=== PATIENT | female | born 1970 | race Caucasian/White ===

== ENCOUNTER → 2020-11-26 14:51 | Outpatient (BNVA) | payer OTHER, SELFPAY | PROVIDERS: Visit Provider Emergency Medicine | DX: Z11.52 Encounter for screening for COVID-19 (principal); Z20.822 Contact with and (suspected) exposure to COVID-19 | CPT/HCPCS: 87635 ==

== ENCOUNTER → 2022-04-19 11:15 | Outpatient (BNVA) | payer OTHER, SELFPAY | PROVIDERS: Visit Provider Nurse Practitioner Family | DX: J44.9 Chronic obstructive pulmonary disease, unspecified (principal); R04.2 Hemoptysis; R91.8 Other nonspecific abnormal finding of lung field; R06.02 Shortness of breath | CPT/HCPCS: 71046 ==

== ENCOUNTER 2022-04-19 18:40 | Inpatient (IN) | payer OTHER, SELFPAY ==
[2022-04-19 18:49] VITALS: BP 161/96; PULSE 112; RESP 18; TEMP 37; O2SAT 94
--- NOTE | 2022-04-19 18:54 | ECG_ITS ---
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 Measurements Intervals [place] Rate: 96 P: 59 DE: 149 QRS: 47 QRSD: 92 T: 47 QT: 397 QTc: 503 Interpretive Statements SINUS RHYTHM LEFT ATRIAL ENLARGEMENT [-0.15mV P-WAVE IN V1/V2] No previous ECG available for comparison Electronically Signed On 04-20-2022 20:49:08 CDT by Salinas Ramesh M.D. [id number]
--- NOTE | 2022-04-19 18:54 | XRR_ITS ---
PROCEDURE INFORMATION: Exam: XR Chest Exam date and time: 04/19/2022 7:03 PM Age: 52 years old Clinical indication: Shortness of breath; Additional info: SOB TECHNIQUE: Imaging protocol: Radiologic exam of the chest. Views: 1 view. COMPARISON: CR XR chest 2V* [id number] 04/19/2022 11:14 AM FINDINGS: Lungs: Left mid lung 7.6 cm apparent cavitary lesion again seen, similar prior exam, chest CT could further characterize this, finding is concerning for an infectious process. Pleural spaces: Unremarkable. No pleural effusion. No pneumothorax. Heart/Mediastinum: Unremarkable. No cardiomegaly. Bones/joints: Unremarkable. XR/XR chest 1V portable [id number] IMPRESSION: Left mid lung 7.6 cm apparent cavitary lesion again seen, similar prior exam, chest CT could further characterize this, finding is concerning for an infectious process.
[2022-04-19 19:40] LABS: Basophils % 0.2 %; Eosinophils % 0.1 %; Hematocrit 45.6 % (37.0-47.0); Hemoglobin 15.7 g/dL (11.5-15.3); Lymphocytes # 0.7 10^3/uL (0.8-4.8); Lymphocytes % 5.9 %; Mean Corpuscular HGB Conc 34.4 g/dL (30.0-36.0); Mean Corpuscular Hemoglobin 35.4 pg (28.0-34.0); Mean Corpuscular Volume 102.7 fl (81-99); Monocytes # 0.3 10^3/uL (0.2-0.9); Monocytes % 2.4 %; Neutrophils # 11.12 10^3/uL (1.8-7.7); Neutrophils % 90.8 %; Nucleated Red Blood Cells % 0 %; Platelet Count 352 10^3/cmm (130-400); Red Blood Count 4.44 10^6/uL (4.1-5.3); White Blood Count 12.2 10^3/uL (4.0-10.0)
[2022-04-19 20:16] LABS: Troponin(5th) Baseline 6 ng/L (0-10)
[2022-04-19 20:24] LABS: Alanine Aminotransferase 23 U/L (0-33); Albumin Level 3.9 g/dL (3.5-5.2); Alkaline Phosphatase 82 IU/L (35-105); Blood Urea Nitrogen 8 mg/dL (6-20); Calcium 8.9 mg/dL (8.5-10.5); Carbon Dioxide 23 mmol/L (22-29); Chloride 99 mmol/L (98-107); Globulin 3.5 g/dL (1.3-4.6); Glucose 132 mg/dL (65-115); NT Pro B Type Natriuretic Pept 373 pg/mL (0-125); Osmolality Calculated 288 mOsm/kg (285-295); Sodium 139 mmol/L (136-145); Total Bilirubin 0.2 mg/dL (0.15-1.2); Total Protein 7.4 g/dL (6.6-8.7)
[2022-04-19 20:26] LABS: Aspartate Amino Transferase 33 U/L (0-32)
[2022-04-19 20:27] LABS: Anion Gap 19.9 (5-19); Potassium 2.9 mmol/L (3.5-5.1)
--- NOTE | 2022-04-19 20:54 | ECG_ITS ---
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 Measurements Intervals [place] Rate: 74 P: 62 LA: 136 QRS: 40 QRSD: 98 T: 48 QT: 435 QTc: 485 Interpretive Statements SINUS RHYTHM POSSIBLE LEFT ATRIAL ENLARGEMENT [-0.1mV P WAVE IN V1/V2] Compared to ECG 04/19/2022 21:56:04 No significant changes Electronically Signed On 04-20-2022 21:00:30 CDT by Salinas Ramesh M.D. [id number]
--- NOTE | 2022-04-19 21:21 | CTR_ITS ---
PROCEDURE INFORMATION: Exam: CT Chest Without Contrast; Diagnostic Exam date and time: 04/19/2022 10:03 PM Age: 52 years old Clinical indication: Chest wall pain and left-sided; Patient HX: Coughing up blood, abnormal xray 04/14/22, [id number] and steroids not helping; Additional info: Mass TECHNIQUE: Imaging protocol: Diagnostic computed tomography of the chest without contrast. Radiation optimization: All CT scans at this facility use at least one of these dose optimization techniques: automated exposure control; mA and/or kV adjustment per patient size (includes targeted exams where dose is matched to clinical indication); or iterative reconstruction. COMPARISON: CR XR chest 1V portable [id number] 04/19/2022 7:03 PM RADIATION DOSE METRICS: Total DLP (mGy-cm): 662.7 FINDINGS: Lungs: Peripherally located cavitary mass along the peripheral/inferior aspect of the left upper lobe measuring 7.0 x 5.1 x 7.7 cm series 4, image 29 and series 7, image 19. Some adjacent ground-glass opacities surround the cavitary mass. Scattered calcified granulomas noted in both lungs. Pleural spaces: No pneumothorax. No pleural effusion. Heart: No coronary artery calcifications. No cardiomegaly. No pericardial effusion. Lymph nodes: Mildly prominent lymph nodes in the AP window measuring up to 0.9 cm in short axis series 4, image 26. Partially calcified mediastinal and hilar lymph nodes noted. Vasculature: No aortic aneurysm. Bones/joints: No acute fracture. No aggressive osseous lesions. Soft tissues: Unremarkable. CT/CT chest wo con [id number] IMPRESSION: 1. Nearly 8 cm cavitary mass along the periphery of the left upper lobe. This could represent an abscess or malignancy in the appropriate clinical context. 2. Nonspecific mildly prominent mediastinal lymph nodes.
--- NOTE | 2022-04-19 21:22 | ED_ITS ---
HPI - SOB/Dyspnea General: Chief Complaint: Shortness of Breath/Dyspnea Stated Complaint: Dr sent to ER for a CT Time Seen by Provider: 04/19/22 21:18 Source: patient Mode of arrival: ambulatory Limitations: no limitations History of Present Illness: HPI Narrative: 52-year-old female who is no history of any medical issues states that started having a cough and some shortness of breath little over a week ago she states she started having hemoptysis as well. States she had an outpatient x-ray and was told that she may have an abscess and needs CT of the chest. States she does have pain to the left side and still having hemoptysis she states her shortness of breath is worse with exertion she is 94% here on room air she denies any fever denies any recent sick contacts Associated symptoms: Reports hemoptysis; Deny abdominal pain, chest pain, fever(s), nausea or vomiting Review of Systems Const: Denies: fever(s), chills, body aches or change in appetite Eyes: Denies: blurry vision or eye discomfort ENMT: Denies: throat pain or dental pain Card: Denies: chest pain Resp: Reports: dyspnea, productive cough and hemoptysis GI: Denies: abdominal pain, nausea, vomiting or diarrhea : Denies: dysuria Musc: Denies: neck pain or back pain Skin/Breast: Denies: rash Neuro: Denies: headache(s) Psych: Denies: depression Reinaldo/Lymph: Denies: easy bruising All/Imm: Denies: urticaria PFSH ED PFSH: Surgical History Hx of foot surgery left Hx of tubal ligation Social History Smoking and tobacco status: current every day smoker Second hand smoke exposure: No Smoking risk assessment/counseling performed?: Yes Alcohol intake: never Desire information about alcohol rehabilitation?: No Counseling given: No Desire information about substance/drug rehabilitation?: No Counseling given: No Adopted: No Caregiver/support person: No Lives independently: Yes Household members: spouse Housing: House Marital status: Number of children: 2 Current occupational status: employed History of recent travel: No Physical Exam Const: COMMON NORMALS: no acute distress, patient oriented x3 and healthy appearing HENMT: COMMON NORMALS: normocephalic and atraumatic HEAD & SCALP: normocephalic and atraumatic Eye: COMMON NORMALS: Equal, round and reactive pupils present and EOMs intact bilaterally PUPIL: Yes Equal, round and reactive pupils present Neck/C-Spine: COMMON NORMALS: full ROM and supple Chest: COMMONS NORMALS: normal inspection of the chest and normal palpation of entire chest wall Resp: COMMON NORMALS: normal respiratory effort, No retractions, No use of accessory muscles and clear to auscultation bilaterally AUSCULTATION: clear to auscultation bilaterally Cardio: COMMON NORMALS: regular rate, regular rhythm and No murmurs present (Cardio) RATE: regular rate RHYTHM: regular rhythm GI: COMMON NORMALS: Normal to inspection, nondistended, normoactive bowel sounds present, Soft to palpation, non-tender and no masses PALPATION: Yes Soft to palpation Extremity: COMMON NORMALS: normal to inspection and full ROM Neuro: COMMON NORMALS: patient oriented x3, moves all extremities and no focal motor deficits Psych: COMMON NORMALS: mental status grossly normal, Normal thought process present and cooperative THOUGHT PROCESS: Normal thought process present Skin: COMMON NORMALS: no rashes or lesions noted and no wounds GENERAL SKIN EXAM: no rashes or lesions noted Course Vital Signs: Vital signs: Vital Signs Temperature 98.6 F 04/19/22 18:49 Pulse Rate 96 04/19/22 22:54 Respiratory Rate 18 04/19/22 22:54 Blood Pressure 136/94 04/19/22 22:54 Pulse Oximetry 96 04/19/22 22:54 MDM - SOB/Dyspnea Medical Decision Making Patient presents here with hemoptysis and had outpatient x-ray that did show lung mass CT here shows a mass as well as abscess versus possible malignancy or infectious. Patient's white count here is 12.2 we will start IV antibiotics I spoke to hospitalist will admit at this time. Lab Data : 04/19/22 19:30 04/19/22 19:30 Labs/Radiology: Radiology Impressions Chest X-Ray 04/19/22 18:54 IMPRESSION: Left mid lung 7.6 cm apparent cavitary lesion again seen, similar prior exam, chest CT could further characterize this, finding is concerning for an infectious process. Chest CT 04/19/22 21:21 IMPRESSION: 1. Nearly 8 cm cavitary mass along the periphery of the left upper lobe. This could represent an abscess or malignancy in the appropriate clinical context. 2. Nonspecific mildly prominent mediastinal lymph nodes. Laboratory Results WBC 12.2 10^3/uL (4.0-10.0) H 04/19/22 19:30 RBC 4.44 10^6/uL (4.1-5.3) 04/19/22: Hgb 15.7 g/dL (11.5-15.3) H 04/19/22: Hct 45.6 % (37.0-47.0) 04/19/22: MCV 102.7 fl (81-99) H 04/19/22: MCH 35.4 pg (28.0-34.0) H 04/19/22: MCHC 34.4 g/dL (30.0-36.0) 04/19/22: RDW 13.0 % (12.1-15.1) 04/19/22: Plt Count 352 10^3/cmm (130-400) 04/19/22: MPV 10.0 fL (7.4-10.4) 04/19/22: Neut % (Auto) 90.8 % 04/19/22: Lymph % (Auto) 5.9 % 04/19/22: Turner % (Auto) 2.4 % 04/19/22: Eos % (Auto) 0.1 % 04/19/22: Baso % (Auto) 0.2 % 04/19/22: Neut # (Auto) 11.12 10^3/uL (1.8-7.7) H 04/19/22: Lymph # (Auto) 0.7 10^3/uL (0.8-4.8) L 04/19/22:30 Turner # (Auto) 0.3 10^3/uL (0.2-0.9) 04/19/22:30 Eos # (Auto) 0.0 10^3/uL (0.0-0.8) 04/19/22 19: Baso # (Auto) 0.0 10^3/uL (0.0-0.1) 04/19/22 19:30 Nucleated RBC % (auto) 0 % 04/19/22: Nucleated RBCs # 0.0 /100WBC 04/19/22 19: PT 11.80 SECONDS (12.1-14.9) L 04/19/22 21:30 INR 0.84 (0.8-1.2) 04/19/22 21:30 Sodium 139 mmol/L (136-145) 04/19/22 19:30 Potassium 2.9 mmol/L (3.5-5.1) L 04/19/22 19:30 Chloride 99 mmol/L (98-107) 04/19/22: Carbon Dioxide 23 mmol/L (22-29) 04/19/22: Anion Gap 19.9 (5-19) H 04/19/22:30 BUN 8 mg/dL (6-20) 04/19/22: Creatinine 0.4 mg/dL (0.5-0.9) L 04/19/22: GFR Calculation 169.0 mL/min (90-130) H 04/19/22: Glucose 132 mg/dL (65-115) H 04/19/22 19:30 Calculated Osmolality 288 mOsm/kg (285-295) 04/19/22: Calcium 8.9 mg/dL (8.5-10.5) 04/19/22:30 Total Bilirubin 0.2 mg/dL (0.15-1.2) 04/19/22: AST 33 U/L (0-32) H 04/19/22: ALT 23 U/L (0-33) 04/19/22: Alkaline Phosphatase 82 IU/L (35-105) 04/19/22 19:30 Troponin T Baseline 6 ng/L (0-10) 04/19/22 19: Troponin T 120 Minute 6.00 ng/L (0-10) 04/19/22:30 Delta Troponin T 0 ABS# (0-10) 04/19/22: NT-Pro-B Natriuret Pep 373 pg/mL (0-125) H 04/19/22 19:30 Total Protein 7.4 g/dL (6.6-8.7) 04/19/22 19:30 Albumin 3.9 g/dL (3.5-5.2) 04/19/22 19:30 Globulin 3.5 g/dL (1.3-4.6) 04/19/22 19:30 EKG Data EKG 1: I personally reviewed and interpreted this EKG as follows: EKG Interpretation Date: 04/19/22 EKG interpretation time: 21:56 Interpretation: nsr hr [address] or t wave abnormalities qrs 92 qtc 451 Discharge Plan Discharge Patient Disposition: Admitted As Inpatient Clinical Impression: Cavitating mass in left upper lung lobe Condition: Stable Prescriptions: No Action levofloxacin 500 mg tablet 500 mg PO DAILY Qty: 7 0RF prednisone 50 mg tablet 50 mg PO DAILY Qty: 5 0RF albuterol sulfate [ProAir HFA] 90 mcg/actuation HFA aerosol inhaler 2 puff inhalation QID PRN (Reason: shortness of breath or wheezing) Qty: 6.7 0RF naproxen 250 mg Tablet 250 mg PO BID 0RF Mucinex Cold 2.5-100 mg/5 mL Liquid 20 ml PO Q4H PRN (Reason: Cough) 0RF Coding Level of Care Code ED Supervisor Rod Placing for Chg Fwd Exam Comprehensive
[2022-04-19 21:47] LABS: INR 0.84 (0.8-1.2)
[2022-04-19 21:58] VITALS: BP 148/97; PULSE 95; RESP 16; O2SAT 98
[2022-04-19 22:20] LABS: Troponin 5 2HR Delta 0 ABS# (0-10)
[2022-04-19 22:54] VITALS: BP 136/94; PULSE 96; RESP 18; O2SAT 96
[2022-04-19] MEDS: piperacillin-tazobactam 3.375 GM in sodium chloride 0.9% (plus) 50 ML IV (23:13)
--- NOTE | 2022-04-19 23:41 | PM.HP ---
Providers/Chief Complaint Chief Complaint: Dr sent to ER for a CT History of Present Illness Pleasant 52-year-old lady with smoking history, month history of hemoptysis, with cough worse over a week, on outpatient side was treated with Levaquin, prednisone, but without improvement, with chest x-ray showing 8 cm left midlung lesion with fluid level suspicious for abscess, assessed additionally here in ER with CT chest with finding of 8 cm cavitary mass along the periphery of the left upper lobe, possible abscess or malignancy. Nonspecific mildly prominent mediastinal lymph nodes. She denies any exposure to tuberculosis, denies any recurrent fevers, does have some sweats at night, denies any unintended weight loss, denies any homelessness or incarceration history. She works for [employer], with a lot of exposure to dust. Review of Systems Const: Denies: fever(s), chills, body aches or malaise Eyes: Denies: change in vision, eye discomfort or eye redness ENMT: Denies: throat pain, oral sores or ear or mastoid pain Card: Denies: chest pain, edema, pre-syncope or dyspnea on exertion Resp: Reports: productive cough and hemoptysis GI: Denies: abdominal pain, nausea, vomiting, diarrhea, constipation, hematochezia or melena : Denies: flank pain, urinary frequency or hematuria Musc: Denies: back pain, joint swelling or joint redness Skin/Breast: Denies: rash or new lesions Neuro: Denies: headache(s), numbness in extremities, weakness in extremities, dizziness, confusion or seizure-like activity Endo: Denies: polyuria or polydipsia Reinaldo/Lymph: Denies: easy bleeding or tender lymph nodes All/Imm: Denies: urticaria or tongue swelling Medications/Allergies Home Medications Medication Instructions Recorded Confirmed Last Taken Type albuterol sulfate 90 mcg/actuation 2 puff INHALATION QID PRN #6.7 g 04/16/22 04/19/22 04/19/22 Rx aerosol inhaler (ProAir HFA) levofloxacin 500 mg tablet 500 mg PO DAILY #7 tab 04/16/22 04/19/22 04/19/22 Rx prednisone 50 mg tablet 50 mg PO DAILY #5 tab 04/16/22 04/19/22 04/19/22 Rx naproxen 250 mg tablet 250 mg PO BID 04/19/22 04/19/22 04/19/22 History phenylephrine-guaifenesin 2.5 20 ml PO Q4H PRN 04/19/22 04/19/22 04/19/22 History mg-100 mg/5 mL oral liquid Allergies Allergy/AdvReac Type Severity Reaction Status Date / Time Sulfa (Sulfonamide Allergy Unknown unkn Verified 04/19/22 21:38 Antibiotics) PFSH Acute PFSH: Medical History No significant past medical history Smoking addiction Surgical History Hx of foot surgery left Hx of tubal ligation Family History Sister Breast cancer Social History Smoking and tobacco status: current every day smoker Second hand smoke exposure: No Smoking risk assessment/counseling performed?: Yes Alcohol intake: never Desire information about alcohol rehabilitation?: No Counseling given: No Desire information about substance/drug rehabilitation?: No Counseling given: No Adopted: No Caregiver/support person: No Lives independently: Yes Household members: spouse Housing: House Marital status: Number of children: 2 Current occupational status: employed History of recent travel: No Vitals/I&O/Wt Last Vital Signs Temp 98.6 F 04/19/22 18:49 Pulse 96 04/19/22 22:54 Resp 18 04/19/22 22:54 BP 136/94 04/19/22 22:54 Pulse Ox 96 04/19/22 22:54 Weight last 48 hrs Weight 58.967 kg Physical Exam Const: COMMON NORMALS: alert GENERAL APPEARANCE: cooperative ORIENTATION/CONSCIOUSNESS: Yes awake HENMT: COMMON NORMALS: normocephalic, EAC's normal, Normal external nose present and moist oral mucous membranes HEAD & SCALP: normocephalic NOSE: Normal external nose present EXTERNAL AUDITORY CANAL: EAC's normal Neck/C-Spine: COMMON NORMALS: no meningeal signs Chest: CHEST: Yes Symmetrical chest wall rise Resp: COMMON NORMALS: clear to auscultation bilaterally AUSCULTATION: clear to auscultation bilaterally Cardio: COMMON NORMALS: regular rate, regular rhythm and No murmurs present (Cardio) RATE: regular rate RHYTHM: regular rhythm GI: COMMON NORMALS: Normal to inspection, nondistended, normoactive bowel sounds present, Soft to palpation and non-tender PALPATION: Yes Soft to palpation Extremity: COMMON NORMALS: no pedal edema Neuro: COMMON NORMALS: moves all extremities SENSORIUM/ORIENTATION: Yes alert MENINGEAL SIGNS: Yes no meningeal signs Psych: COMMON NORMALS: mental status grossly normal Skin: COMMON NORMALS: no wounds RASHES: no rashes Data : 04/19/22 19:30 04/19/22 19:30 Micro: Microbiology 04/19/22 22:29 Blood Culture - Preliminary Blood SPECIMEN COLLECTED 04/19/22 22:25 Blood Culture - Preliminary Blood SPECIMEN COLLECTED A&P Assessment and plan (1) Cavitating mass in left upper lung lobe: Possible lung abscess, versus malignancy. She was asking whether it could be a pulled muscle. Discussed with her the concerning findings on CT which will need Additional diagnosis as well as treatment including possible prolonged antibiotic course in case of lung abscess, assessment for possible atypical infection, fungal or other; tissue diagnosis, additional assessment and management with oncology in case of malignancy. Possible sepsis without end organ damage with leukocytosis 12,000, sinus tachycardia 112. Blood cultures were collected. Collect blood cultures. Continue Zosyn, vancomycin. Collect urine bacterial antigens, MRSA PCR. BD glucan. Galactomannan. Would benefit from pulmonary consultation for additional assessment, consideration of additional diagnostic measures, possibility of bronchoscopy. Status: Acute (2) Smoking addiction: Encourage cessation. Nicotine replacement as needed. Status: Acute Plan Needs PCP Attestations Medical Necessity Statement*: Admission of over 2 midnights is anticipated for assessment of management of lung infection, lung abscess, possible sepsis nonresponsive to outpatient treatment. Coding Level of Care Code Acute Tin Pourer for [facility] Fwd Diagnoses Cavitating mass in left upper lung lobe J98.4 Smoking addiction F17.200
[2022-04-19] MEDS: vancomycin 1,000 MG in sodium chloride 0.9% 250 ML 250 MG IV (23:50)
[2022-04-20] VITALS (8 sets, daily range): BP systolic 124–162; BP diastolic 64–100; PULSE 70–94; RESP 14–18; TEMP 36.5–36.9; O2SAT 93–96; BMI 20.9
--- NOTE | 2022-04-20 00:54 | ECG_ITS ---
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 Measurements Intervals [place] Rate: 78 P: 66 [place]: 143 QRS: 50 QRSD: 97 T: 47 QT: 423 QTc: 484 Interpretive Statements SINUS RHYTHM WITH SINUS ARRHYTHMIA POSSIBLE LEFT ATRIAL ENLARGEMENT [-0.1mV P-WAVE IN V1/V2] Compared to ECG 04/19/2022 23:56:04 No significant changes Electronically Signed On 04-20-2022 21:00:46 CDT by Salinas Ramesh M.D. [id number]
[2022-04-20 02:06] LABS: Troponin 5 6HR Delta 0 ng/L (0-12)
--- NOTE | 2022-04-20 02:47 | PC.PHAR ---
Vancomycin is dosed at 1500mg IVPB every 12 hours to produce a predicted trough level of 13.56 (population based pharmacokinetic analysis). A trough level has been ordered from the lab to be obtained before the fourth dose to confirm and adjust if needed.
[2022-04-20 07:35] LABS: Basophils % 0.1 %; Hematocrit 39.3 % (37.0-47.0); Hemoglobin 14.2 g/dL (11.5-15.3); Lymphocytes # 2.3 10^3/uL (0.8-4.8); Lymphocytes % 21.5 %; Mean Corpuscular HGB Conc 36.1 g/dL (30.0-36.0); Mean Corpuscular Hemoglobin 35.8 pg (28.0-34.0); Mean Platelet Volume 10.1 fL (7.4-10.4); Monocytes # 1.1 10^3/uL (0.2-0.9); Monocytes % 10.6 %; Neutrophils # 7.17 10^3/uL (1.8-7.7); Neutrophils % 67.3 %; Nucleated Red Blood Cells % 0 %; Platelet Count 311 10^3/cmm (130-400); Red Blood Count 3.97 10^6/uL (4.1-5.3); Red Cell Distribution Width 12.8 % (12.1-15.1); White Blood Count 10.7 10^3/uL (4.0-10.0)
[2022-04-20 08:03] LABS: Alanine Aminotransferase 19 U/L (0-33); Albumin Level 3.7 g/dL (3.5-5.2); Alkaline Phosphatase 69 IU/L (35-105); Anion Gap 13.2 (5-19); Aspartate Amino Transferase 24 U/L (0-32); Blood Urea Nitrogen 8 mg/dL (6-20); Calcium 8.8 mg/dL (8.5-10.5); Carbon Dioxide 30 mmol/L (22-29); Chloride 101 mmol/L (98-107); Globulin 2.9 g/dL (1.3-4.6); Glomerular Filtration Rate 235.5 mL/min (90-130); Glucose 103 mg/dL (65-115); Osmolality Calculated 291 mOsm/kg (285-295); Potassium 3.2 mmol/L (3.5-5.1); Sodium 141 mmol/L (136-145); Total Bilirubin 0.3 mg/dL (0.15-1.2); Total Protein 6.6 g/dL (6.6-8.7)
[2022-04-20] MEDS: piperacillin-tazobactam 3.375 GM in sodium chloride 0.9% (plus) 50 ML IV ×3 (08:04→23:05)
--- NOTE | 2022-04-20 11:01 | PM.PN ---
Subjective Subjective: Patient was seen and examined this morning, no reported episode of hemoptysis during the hospital stay, H&H is stable, patient is afebrile, saturating well on room air. She does complain of occasional slight pain Under her left breast. Medications: Medication Review Details: Generic Name Dose Route Start Last Admin Trade Name Benji PRN Reason Stop Dose Admin Piperacillin Sod/T azobactam 50 mls @ 12.5 mls /hr 04/20/22 07:00 04/20/22 08:04 Sod 3.375 gm/ So dium Chloride IV 12.5 mls/hr Q8H MILENA Administration Protocol Vitals/I&O/Wt Last Vital Signs Temp 98.1 F 04/20/22 08:00 Pulse 75 04/20/22 08:00 Resp 14 04/20/22 08:00 BP 157/89 04/20/22 08:00 Pulse Ox 94 04/20/22 08:00 04/19/22 04/20/22 04/20/22 22:59 06:59 14:59 Intake Total 300 / 300 Balance 300 / 300 Weight last 48 hrs Weight 58.967 kg Weight 58.967 kg Physical Exam Const: COMMON NORMALS: patient oriented x3 HENMT: COMMON NORMALS: normocephalic and atraumatic HEAD & SCALP: normocephalic and atraumatic Chest: CHEST: Yes Symmetrical chest wall rise Resp: COMMON NORMALS: normal respiratory effort, No retractions, No use of accessory muscles and clear to auscultation bilaterally EFFORT & INSPECTION: Yes symmetric chest movement AUSCULTATION: clear to auscultation bilaterally Cardio: COMMON NORMALS: regular rate, regular rhythm, S1 normal heart sound present, S2 normal heart sound present, No gallops present (Cardio), No murmurs present (Cardio), No rub (Cardio) and Peripheral pulses 2+ throughout RATE: regular rate RHYTHM: regular rhythm HEART SOUNDS: S1 normal heart sound present and S2 normal heart sound present PERIPHERAL PULSES: Peripheral pulses 2+ throughout GI: COMMON NORMALS: Normal to inspection, nondistended, normoactive bowel sounds present, Soft to palpation, non-tender, No hepatosplenomegaly present and no masses AUSCULTATION: Yes normoactive bowel sounds PALPATION: Yes Soft to palpation and Yes No hepatosplenomegaly present RECTAL EXAM: deferred Extremity: COMMON NORMALS: no clubbing, cyanosis or edema and no pedal edema Neuro: COMMON NORMALS: patient oriented x3 Data : 04/20/22 07:22 04/20/22 07:22 Micro: Microbiology 04/20/22 07:33 Legionella Urinary Antigen - Final Urine,Voided Bacterial Antigens - Final 04/19/22 22:29 Blood Culture - Preliminary Blood SPECIMEN COLLECTED 04/19/22 22:25 Blood Culture - Preliminary Blood SPECIMEN COLLECTED A&P Assessment and plan (1) Cavitating mass in left upper lung lobe: Possible lung abscess, versus malignancy. She was asking whether it could be a pulled muscle. Discussed with her the concerning findings on CT which will need Additional diagnosis as well as treatment including possible prolonged antibiotic course in case of lung abscess, assessment for possible atypical infection, fungal or other; tissue diagnosis, additional assessment and management with oncology in case of malignancy. Possible sepsis without end organ damage with leukocytosis 12,000, sinus tachycardia 112. Blood cultures were collected. Collect blood cultures. Continue Zosyn, vancomycin. Collect urine bacterial antigens, MRSA PCR. BD glucan. Galactomannan. Would benefit from pulmonary consultation for additional assessment, consideration of additional diagnostic measures, possibility of bronchoscopy. Status: Acute (2) Smoking addiction: Encourage cessation. Nicotine replacement as needed. Status: Acute Plan 52-year-old female with no significant past medical history, has a history of significant smoking about a pack a day for 20 years, came in with chief complaint of hemoptysis and cough going on for couple of weeks, worse on last Tuesday, which prompted her to go to the physician, at that time she was diagnosed with Walking pneumonia, and she was prescribed Levaquin as well as prednisone and sent home, she was called by by the physician after she reviewed her x-ray chest, which showed Lesion along the peripheral left mid lung measuring up to 8 cm in size fluid level suspicious for abscess. When I interacted with the patient this morning, she has denied, any weight loss, fever chills , overt fatigue , shortness of breath nausea vomiting, pain, rash, joint swelling, oral ulcers, Hematuria, night sweats, sick contact, IV drug use, she was inquired about her occupation. CT chest without contrast evaluation: Looks like reverse halo sign, but the study is limited due to no contrast use. Assessment: Cavitating mass in left upper lung lobe: Suspicious for possible abscess versus malignant. Follow 2D echo Aspergillus studies Cryptococcal studies Coccidioides Rheumatological panel ANCA Histoplasma study TB QuantiFERON gold ESR CRP Procalcitonin Follow blood culture Sputum gram stain and culture Urinalysis for hematuria, proteinuria Respiratory viral panel Continue Vanco and Zosyn for now. We will most likely discharge on p.o. antibiotics for 2 weeks. Patient was briefly discussed with pulmonary physician, current plan will be to likely follow her as an outpatient. CODE STATUS: Full code Attestations Medical Necessity Statement*: Patient is to be in hospital for management of above defined problems. Need for IV antibiotics. Time Spent in Patient Care: Greater than 35 minutes (>than 50% of time spent in counselling and/or direct pt care on unit). Coding Level of Care Code Acute Chief Deputy Clerk/Bailiff for [place] Fwd Exam Detailed Diagnoses Cavitating mass in left upper lung lobe J98.4 Smoking addiction F17.200
--- NOTE | 2022-04-20 11:11 | USCV_ITS ---
Yoselin Chahal Age: 52 Gender: F : 1970 Exam Date: 04/20/2022 15:57 Ordering Phys: Edmundo Guerrero MD Technologist: DEANDRA [place] [facility] [place] POSSIBLE SEPTIC EMBOLI BP: 157 / 89 HR: 71 Rhythm: Sinus Technical Quality: Adequate MEASUREMENTS (Male / Female) Normal Values 2D ECHO LV Diastolic Diameter PLAX 4.2 cm 4.2 - 5.9 / 3.9 - 5.3 cm LV Systolic Diameter PLAX 3.0 cm IVS Diastolic Thickness 1.5 cm 0.6 - 1.0 / 0.6 - 0.9 cm IVS Systolic Thickness 1.6 cm LVPW Diastolic Thickness 1.4 cm 0.6 - 1.0 / 0.6 - 0.9 cm LVPW Systolic Thickness 1.7 cm LVOT Diameter 2.0 cm LV Ejection Fraction 2D Teich 55.6 % LV Ejection Fraction MOD 2C 40.0 % LV Ejection Fraction 2C AL 40.6 % LA Diameter 3.1 cm LA Width 3.0 cm LA Height 3.5 cm RA Width 3.7 cm RA Height 3.9 cm Aorta at Sinotubular Diameter 2.4 cm IVC Diameter 1.7 cm M-MODE Aortic Annulus Diameter 2.7 cm LA Ao Ratio MM 1.0 MV E Point Septal Separation 0.8 cm DOPPLER AV Peak Velocity 134.0 cm/s LVOT Peak Velocity 84.0 cm/s AV Area Cont Eq vti 2.1 cm squared AV Area Cont Eq pk 1.9 cm squared MV Peak Velocity 80.0 cm/s MV Area PHT 3.7 cm squared Mitral E to A Ratio 1.1 MV E' Velocity 40.5 cm/s Mitral E to MV E' Ratio 7.2 Mitral E to LV E' Lateral Ratio 9.5 Mitral E to LV E' Septal Ratio 5.9 TR Peak Velocity 191.9 cm/s TR Peak Gradient 14.7 mmHg TR Mean Velocity 152.7 cm/s TR Mean Gradient 10.0 mmHg TR Velocity Time Integral 50.9 cm TV Peak E Velocity 63.0 cm/s Right Atrial Pressure 3.0 mmHg Pulmonary Artery Systolic Pressu 17.7 mmHg FINDINGS Left Ventricle Normal left ventricular size. LV systolic function is mildly reduced with EF of 45 to 50%. Mild global hypokinesis. Right Ventricle The right ventricle is normal in size and function. Right Atrium The right atrium is normal in size. Left Atrium The left atrium is normal in size. Mitral Valve Structurally normal mitral valve without significant stenosis or prolapse. There is no mitral regurgitation. Aortic Valve Grossly normal. No significant stenosis or regurgitation. Tricuspid Valve Grossly normal. Trace tricuspid regurgitation. Pulmonic Valve Not well-visualized Pericardium Normal pericardium without effusion. Aorta Normal ascending aorta dimension. IVC CONCLUSIONS Technically limited quality echocardiogram because of poor ultrasonic windows. LV systolic function is mildly reduced with EF of 45 to 50%. Mild global hypokinesis. No gross valvular abnormalities seen. No comparison studies are available Tate Resendiz MD (Electronically Signed) Final Date: 20 April 2022 18:38 S
[2022-04-20] MEDS: vancomycin 1,500 MG/300 ML PIGGYBACK 150 MG IV (12:15)
[2022-04-20] MEDS: acetaminophen 325 mg Tablet 650 MG PO (12:15)
[2022-04-20 18:03] LABS: Add Urine Culture? No; Add Urine Microscopic? YES; Bilirubin Urine Neg (Negative); Blood Urine 2+ (Negative); Glucose Urine UA Norm (Normal); Ketones Urine Negative (Negative); Leukocyte Esterase Urine Negative (Negative); Nitrate Urine Negative (Negative); Protein Urine Neg (Negative); RBC Urine 0-4 /hpf (0-2); Squamous Epithelial Cell Urine 0-4 /hpf (0-5); Sulfosalicylic Acid Urine Negative (Negative); Urine Appearance Clear (CLEAR); Urine Color Colorless (Yellow); Urobilinogen Urine Norm (Negative); WBC Urine 0-4 /hpf (0-5); pH Urine 8 (5-7)
[2022-04-21] VITALS: BP 132/86; PULSE 86; RESP 18; TEMP 36.7; O2SAT 92
[2022-04-21] MEDS: vancomycin 1,500 MG/300 ML PIGGYBACK 150 MG IV ×2 (02:45→11:12)
[2022-04-21] MEDS: piperacillin-tazobactam 3.375 GM in sodium chloride 0.9% (plus) 50 ML IV ×3 (05:30→22:36)
[2022-04-21 05:39] LABS: Basophils % 0.4 %; Eosinophils # 0.1 10^3/uL (0.0-0.8); Eosinophils % 0.8 %; Erythrocyte Sedimentation Rate 21 mm/hr (0-15); Hematocrit 42.9 % (37.0-47.0); Hemoglobin 14.9 g/dL (11.5-15.3); Lymphocytes # 2.4 10^3/uL (0.8-4.8); Mean Corpuscular HGB Conc 34.7 g/dL (30.0-36.0); Mean Corpuscular Hemoglobin 35.3 pg (28.0-34.0); Mean Corpuscular Volume 101.7 fl (81-99); Monocytes # 0.9 10^3/uL (0.2-0.9); Monocytes % 7.6 %; Neutrophils # 7.97 10^3/uL (1.8-7.7); Neutrophils % 69.8 %; Nucleated Red Blood Cells % 0 %; Platelet Count 322 10^3/cmm (130-400); Red Blood Count 4.22 10^6/uL (4.1-5.3); Red Cell Distribution Width 12.7 % (12.1-15.1); White Blood Count 11.4 10^3/uL (4.0-10.0)
[2022-04-21 05:58] LABS: Alanine Aminotransferase 20 U/L (0-33); Albumin Level 3.6 g/dL (3.5-5.2); Alkaline Phosphatase 69 IU/L (35-105); Anion Gap 13.2 (5-19); Aspartate Amino Transferase 28 U/L (0-32); Blood Urea Nitrogen 7 mg/dL (6-20); C Reactive Protein 6.8 mg/L (0.0-4.9); Calcium 8.7 mg/dL (8.5-10.5); Carbon Dioxide 27 mmol/L (22-29); Chloride 100 mmol/L (98-107); Globulin 2.8 g/dL (1.3-4.6); Glomerular Filtration Rate 235.5 mL/min (90-130); Glucose 89 mg/dL (65-115); Osmolality Calculated 281 mOsm/kg (285-295); Potassium 3.2 mmol/L (3.5-5.1); Sodium 137 mmol/L (136-145); Total Bilirubin 0.4 mg/dL (0.15-1.2); Total Protein 6.4 g/dL (6.6-8.7)
[2022-04-21 06:04] LABS: Procalcitonin 0.03 ng/mL (0-0.5)
[2022-04-21 07:40] VITALS: BP 146/87; PULSE 90; RESP 16; TEMP 36.7; O2SAT 94
[2022-04-21 08:00] VITALS: PULSE 87; RESP 18; O2SAT 92
[2022-04-21 11:53] VITALS: BP 130/84; PULSE 72; RESP 16; TEMP 36.8; O2SAT 96
[2022-04-21 15:48] VITALS: BP 144/83; PULSE 85; RESP 16; TEMP 36.8; O2SAT 95
--- NOTE | 2022-04-21 18:51 | PM.PN ---
Subjective Subjective: Patient was seen and examined this morning, no reported episode of hemoptysis, H&H is stable, saturating well on room air, afebrile. Cultures have remained negative so far. Medications: Medication Review Details: Generic Name Dose Route Start Last Admin Trade Name Benji PRN Reason Stop Dose Admin Acetaminophen 650 mg 04/20/22 02:27 04/20/22 12:15 Acetaminophen 32 5 Mg Tablet PO 650 mg Q6H PRN Administration Mild/Mod Pain Or Temp >/= 101 Piperacillin Sod/T azobactam 50 mls @ 12.5 mls /hr 04/20/22 07:00 04/21/22 15:55 Sod 3.375 gm/ So dium Chloride IV 12.5 mls/hr Q8H MILENA Administration Protocol Vancomycin/PEG/NAD A/Lysine/Water 1,500 mg in 300 m ls @ 150 mls/hr 04/20/22 12:00 04/21/22 14:08 Vancocin IV Infused Q12H MILENA Infusion Vitals/I&O/Wt Last Vital Signs Temp 98.3 F 04/21/22 15:48 Pulse 85 04/21/22 15:48 Resp 16 04/21/22 15:48 BP 144/83 04/21/22 15:48 Pulse Ox 95 04/21/22 15:48 04/21/22 04/21/22 04/21/22 06:59 14:59 22:59 Intake Total 350 / 1590 710 / 710 240 / 950 Balance 350 / 1590 710 / 710 240 / 950 Weight last 48 hrs Weight 58.967 kg Physical Exam Const: COMMON NORMALS: patient oriented x3 HENMT: COMMON NORMALS: normocephalic and atraumatic HEAD & SCALP: normocephalic and atraumatic Chest: CHEST: Yes Symmetrical chest wall rise Resp: COMMON NORMALS: normal respiratory effort, No retractions, No use of accessory muscles and clear to auscultation bilaterally EFFORT & INSPECTION: Yes symmetric chest movement AUSCULTATION: clear to auscultation bilaterally Cardio: COMMON NORMALS: regular rate, regular rhythm, S1 normal heart sound present, S2 normal heart sound present, No gallops present (Cardio), No murmurs present (Cardio), No rub (Cardio) and Peripheral pulses 2+ throughout RATE: regular rate RHYTHM: regular rhythm HEART SOUNDS: S1 normal heart sound present and S2 normal heart sound present PERIPHERAL PULSES: Peripheral pulses 2+ throughout GI: COMMON NORMALS: Normal to inspection, nondistended, normoactive bowel sounds present, Soft to palpation, non-tender, No hepatosplenomegaly present and no masses AUSCULTATION: Yes normoactive bowel sounds PALPATION: Yes Soft to palpation and Yes No hepatosplenomegaly present RECTAL EXAM: deferred Extremity: COMMON NORMALS: no clubbing, cyanosis or edema and no pedal edema Neuro: COMMON NORMALS: patient oriented x3 Data : 04/21/22 05:07 04/21/22 05:07 Micro: Microbiology 04/20/22 07:33 Gram Stain - Final Sputum - Expectorated Sputum Sputum Culture - Preliminary 04/20/22 19:14 Gram Stain - Final Sputum - Expectorated Sputum Sputum Culture - Preliminary 04/19/22 22:29 Blood Culture - Preliminary Blood NEGATIVE TO DATE 04/19/22 22:25 Blood Culture - Preliminary Blood NEGATIVE TO DATE 04/20/22 03:45 MRSA Culture - Final Nose A&P Assessment and plan (1) Cavitating mass in left upper lung lobe: Possible lung abscess, versus malignancy. She was asking whether it could be a pulled muscle. Discussed with her the concerning findings on CT which will need Additional diagnosis as well as treatment including possible prolonged antibiotic course in case of lung abscess, assessment for possible atypical infection, fungal or other; tissue diagnosis, additional assessment and management with oncology in case of malignancy. Possible sepsis without end organ damage with leukocytosis 12,000, sinus tachycardia 112. Blood cultures were collected. Collect blood cultures. Continue Zosyn, vancomycin. Collect urine bacterial antigens, MRSA PCR. BD glucan. Galactomannan. Would benefit from pulmonary consultation for additional assessment, consideration of additional diagnostic measures, possibility of bronchoscopy. Status: Acute (2) Smoking addiction: Encourage cessation. Nicotine replacement as needed. Status: Acute Plan 52-year-old female with no significant past medical history, has a history of significant smoking about a pack a day for 20 years, came in with chief complaint of hemoptysis and cough going on for couple of weeks, worse on last Tuesday, which prompted her to go to the physician, at that time she was diagnosed with Walking pneumonia, and she was prescribed Levaquin as well as prednisone and sent home, she was called by by the physician after she reviewed her x-ray chest, which showed Lesion along the peripheral left mid lung measuring up to 8 cm in size fluid level suspicious for abscess. When I interacted with the patient this morning, she has denied, any weight loss, fever chills , overt fatigue , shortness of breath nausea vomiting, pain, rash, joint swelling, oral ulcers, Hematuria, night sweats, sick contact, IV drug use, she was inquired about her occupation. Patient has denied any recent travel CT chest without contrast evaluation: Looks like reverse halo sign, but the study is limited due to no contrast use. Assessment: Cavitating mass in left upper lung lobe: Suspicious for possible abscess versus malignant. 2D echo: LV systolic function is mildly reduced with EF of 45 to 50%.?Mild global hypokinesis. No gross valvular abnormalities seen. Aspergillus studies Cryptococcal studies Coccidioides Rheumatological panel ANCA Histoplasma study TB QuantiFERON gold ESR: 21 CRP: 6.8 Procalcitonin: 0.03 Follow blood culture:NTD Sputum gram stain and culture: Urine Legionella antigen: Negative Bacterial antigen panel: Negative MRSA PCR: Negative Urinalysis for hematuria, proteinuria Respiratory viral panel Continue Vanco and Zosyn for now. We will most likely discharge on p.o. antibiotics for 2 weeks. Patient was briefly discussed with pulmonary physician, current plan will be to likely follow her as an outpatient. Patient has also been advised to follow cardiology as an outpatient, in light of the echo findings, as well as given her significant history of smoking, To rule out any ischemic cardiomyopathy, currently she has no typical cardiac chest pain. CODE STATUS: Full code Attestations Medical Necessity Statement*: Patient is to be hospital for management of cavitary mass in left upper lung lobe, need for IV antibiotics. Coding Level of Care Code Acute [employer] for [facility] Diagnoses Cavitating mass in left upper lung lobe J98.4 Smoking addiction F17.200
[2022-04-21 20:00] VITALS: BP 134/77; PULSE 86; PULSE 91; RESP 15; RESP 18; TEMP 36.8; O2SAT 95; O2SAT 97
[2022-04-21] MEDS: acetaminophen 325 mg Tablet 650 MG PO (22:42)
--- NOTE | 2022-04-21 23:50 | PC.PHAR ---
Vancomycin trough on dosage of 1500mg IVPB every 12 hours before the fourth dose is 9.0. Dosage is increase to 1500mg IVPB every 8 hours with another trough to be obtained before the fourth dose at this rate.
[2022-04-22] VITALS: BP 139/83; PULSE 84; RESP 19; TEMP 36.3; O2SAT 94
[2022-04-22] MEDS: vancomycin 1,500 MG/300 ML PIGGYBACK 150 MG IV ×2 (00:03→09:11)
[2022-04-22 04:00] VITALS: BP 135/85; PULSE 76; RESP 18; TEMP 36.7; O2SAT 94
[2022-04-22] MEDS: piperacillin-tazobactam 3.375 GM in sodium chloride 0.9% (plus) 50 ML IV (06:32)
[2022-04-22 07:07] LABS: Basophils # 0.1 10^3/uL (0.0-0.1); Basophils % 0.5 %; Eosinophils # 0.2 10^3/uL (0.0-0.8); Eosinophils % 1.6 %; Hemoglobin 14.9 g/dL (11.5-15.3); Lymphocytes # 2.2 10^3/uL (0.8-4.8); Lymphocytes % 17.7 %; Mean Corpuscular HGB Conc 33.1 g/dL (30.0-36.0); Mean Corpuscular Hemoglobin 35.3 pg (28.0-34.0); Mean Corpuscular Volume 106.6 fl (81-99); Mean Platelet Volume 10.1 fL (7.4-10.4); Monocytes # 1.3 10^3/uL (0.2-0.9); Monocytes % 10.3 %; Neutrophils % 69.3 %; Nucleated Red Blood Cells % 0 %; Platelet Count 284 10^3/cmm (130-400); Red Blood Count 4.22 10^6/uL (4.1-5.3); Red Cell Distribution Width 12.9 % (12.1-15.1); White Blood Count 12.4 10^3/uL (4.0-10.0)
[2022-04-22 07:54] LABS: Alanine Aminotransferase 22 U/L (0-33); Albumin Level 3.5 g/dL (3.5-5.2); Alkaline Phosphatase 76 IU/L (35-105); Anion Gap 13.2 (5-19); Aspartate Amino Transferase 26 U/L (0-32); Blood Urea Nitrogen 7 mg/dL (6-20); Calcium 8.8 mg/dL (8.5-10.5); Carbon Dioxide 25 mmol/L (22-29); Chloride 104 mmol/L (98-107); Globulin 3.3 g/dL (1.3-4.6); Glomerular Filtration Rate 235.5 mL/min (90-130); Glucose 95 mg/dL (65-115); Osmolality Calculated 286 mOsm/kg (285-295); Potassium 3.2 mmol/L (3.5-5.1); Sodium 139 mmol/L (136-145); Total Bilirubin 0.4 mg/dL (0.15-1.2); Total Protein 6.8 g/dL (6.6-8.7)
[2022-04-22 08:00] VITALS: BP 135/86; PULSE 101; PULSE 88; RESP 16; RESP 17; TEMP 36.9; O2SAT 95
--- NOTE | 2022-04-22 10:32 | PM.DCS ---
Discharge Providers Date of Admission: 04/20/22 02:27 Date of Discharge: April 22, 2022 Attending Provider at Admission: Kevin Hines Attending Provider at Discharge: Edmundo Guerrero MD Diagnoses at Discharge Discharge Diagnosis (1) Cavitating mass in left upper lung lobe: Status: Acute (2) Smoking addiction: Status: Acute Reason for Visit Reason for Visit: Dr sent to ER for a CT Hospital Course Hospital Course 52-year-old female with no significant past medical history, has a history of significant smoking about a pack a day for 20 years, came in with chief complaint of hemoptysis and cough going on for couple of weeks, worse on last Tuesday, which prompted her to go to the physician, at that time she was diagnosed with Walking pneumonia, and she was prescribed Levaquin as well as prednisone and sent home, she was called by by the physician after she reviewed her x-ray chest, which showed?Lesion along the peripheral left mid lung measuring up to 8 cm in size fluid level suspicious for abscess. When I interacted with the patient she has denied, any weight loss, fever chills , overt fatigue , shortness of breath nausea vomiting, pain, rash, joint swelling, oral ulcers, Hematuria, night sweats, sick contact, IV drug use, she was inquired about her occupation. Patient has denied any recent travel. CT chest without contrast evaluation: Looks like reverse halo sign, but the study is limited due to no contrast use. She was admitted for management of Cavitating mass in left upper lung lobe: Suspicious for possible abscess versus malignant: She was kept on broad-spectrum antibiotics during the hospital stay, had occasional scant hemoptysis during hospital stay, her H&H were stable, she was afebrile, saturating well on room air, hemodynamically stable,ESR:? 21 CRP: 6.8 Procalcitonin: 0.03 Blood culture:NTD, Sputum gram stain and culture:, Urine Legionella antigen: Negative Bacterial antigen panel: Negative MRSA PCR: Negative She will follow pulmonary medicine as outpatient in 2 weeks, after completing antibiotic course, she has been discharged on Augmentin and levofloxacin, repeat CT chest with contrast has been ordered, pending labs includes Aspergillus studies Cryptococcal studies Coccidioides Rheumatological panel ANCA , Histoplasma study TB QuantiFERON gold, Respiratory viral panel. She will also follow cardiology as an outpatient given her 2D echo findings, and prior history of smoking. Overall patient responded well to above medical management, she will continue to follow primary care and pulmonary as an outpatient. Physical Exam Const: COMMON NORMALS: patient oriented x3 HENMT: COMMON NORMALS: normocephalic and atraumatic HEAD & SCALP: normocephalic and atraumatic Chest: CHEST: Yes Symmetrical chest wall rise Resp: COMMON NORMALS: normal respiratory effort, No retractions, No use of accessory muscles and clear to auscultation bilaterally EFFORT & INSPECTION: Yes symmetric chest movement AUSCULTATION: clear to auscultation bilaterally Cardio: COMMON NORMALS: regular rate, regular rhythm, S1 normal heart sound present, S2 normal heart sound present, No gallops present (Cardio), No murmurs present (Cardio), No rub (Cardio) and Peripheral pulses 2+ throughout RATE: regular rate RHYTHM: regular rhythm HEART SOUNDS: S1 normal heart sound present and S2 normal heart sound present PERIPHERAL PULSES: Peripheral pulses 2+ throughout GI: COMMON NORMALS: Normal to inspection, nondistended, normoactive bowel sounds present, Soft to palpation, non-tender, No hepatosplenomegaly present and no masses AUSCULTATION: Yes normoactive bowel sounds PALPATION: Yes Soft to palpation and Yes No hepatosplenomegaly present RECTAL EXAM: deferred Extremity: COMMON NORMALS: no clubbing, cyanosis or edema and no pedal edema Neuro: COMMON NORMALS: patient oriented x3 Discharge Data Studies Completed and Pending Completed Studies During Hospitalization Category Date Time Status CT chest wo con [id number] Urgent Cat Scan 04/19/22 21:21 Completed XR chest 1V portable [id number] Stat Exams 04/19/22 18:54 Completed CV. echo complete* [id number] Routine Ultrasound 04/20/22 11:11 Completed Pending at discharge Category Date Time Status 1-3 Beta D Glucan [Fungitell Glucan Assay (Blood)] Lab 04/20/22 07:22 Received Routine ISAAC Profile Rheumatology AM LABS Lab 04/21/22 05:07 Received ANCA [Anti-Neutrophil Cytoplasmic AB] AM LABS Lab 04/21/22 05:07 Received Blood Culture Stat Lab 04/19/22 22:29 Results CCP [Cyclic Citrullinated Peptide] Routine Lab 04/21/22 05:07 Received Coccidioides AB Immunodiffusio Routine Lab 04/21/22 05:07 Received Cryptococcal Antigen w/ Reflex Routine Lab 04/21/22 05:07 Received GALACTOMANAN [Aspergillus AG,EIA,Serum] Routine Lab 04/20/22 07:22 Received Histoplasma Quantitative AG Routine Lab 04/21/22 05:07 Received Kqtrihyncpm-PL-Ewiz Plus Routine Lab 04/20/22 12:23 Received Respiratory Viral Panel PCR Routine Lab 04/21/22 13:19 Received Sputum Culture and Gram Stain Routine Lab 04/20/22 07:33 Results Sputum Culture and Gram Stain Routine Lab 04/20/22 19:14 Results Vancomycin Trough Timed Lab 04/23/22 11:00 Ordered Radiology Impressions Chest X-Ray 04/19/22 18:54 IMPRESSION: Left mid lung 7.6 cm apparent cavitary lesion again seen, similar prior exam, chest CT could further characterize this, finding is concerning for an infectious process. Chest CT 04/19/22 21:21 IMPRESSION: 1. Nearly 8 cm cavitary mass along the periphery of the left upper lobe. This could represent an abscess or malignancy in the appropriate clinical context. 2. Nonspecific mildly prominent mediastinal lymph nodes. Laboratory Results WBC 12.4 10^3/uL (4.0-10.0) H 04/22/22 06:30 RBC 4.22 10^6/uL (4.1-5.3) 04/22/22 06:30 Hgb 14.9 g/dL (11.5-15.3) 04/22/22 06:30 Hct 45.0 % (37.0-47.0) 04/22/22 06:30 MCV 106.6 fl (81-99) H 04/22/22 06:30 MCH 35.3 pg (28.0-34.0) H 04/22/22 06:30 MCHC 33.1 g/dL (30.0-36.0) 04/22/22 06:30 RDW 12.9 % (12.1-15.1) 04/22/22 06:30 Plt Count 284 10^3/cmm (130-400) 04/22/22 06:30 MPV 10.1 fL (7.4-10.4) 04/22/22 06:30 Neut % (Auto) 69.3 % 04/22/22 06:30 Lymph % (Auto) 17.7 % 04/22/22 06:30 [place]ven % (Auto) 10.3 % 04/22/22 06:30 Eos % (Auto) 1.6 % 04/22/22 06:30 Baso % (Auto) 0.5 % 04/22/22 06:30 Neut # (Auto) 8.60 10^3/uL (1.8-7.7) H 04/22/22 06:30 Lymph # (Auto) 2.2 10^3/uL (0.8-4.8) 04/22/22 06:30 Craven # (Auto) 1.3 10^3/uL (0.2-0.9) H 04/22/22 06:30 Eos # (Auto) 0.2 10^3/uL (0.0-0.8) 04/22/22 06:30 Baso # (Auto) 0.1 10^3/uL (0.0-0.1) 04/22/22 06:30 Nucleated RBC % (auto) 0 % 04/22/22 06:30 Nucleated RBCs # 0.0 /100WBC 04/22/22 06:30 ESR 21 mm/hr (0-15) H 04/21/22 05:07 PT 11.80 SECONDS (12.1-14.9) L 04/19/22 21:30 INR 0.84 (0.8-1.2) 04/19/22 21:30 Sodium 139 mmol/L (136-145) 04/22/22 06:30 Potassium 3.2 mmol/L (3.5-5.1) L 04/22/22 06:30 Chloride 104 mmol/L (98-107) 04/22/22 06:30 Carbon Dioxide 25 mmol/L (22-29) 04/22/22 06:30 Anion Gap 13.2 (5-19) 04/22/22 06:30 BUN 7 mg/dL (6-20) 04/22/22 06:30 Creatinine 0.3 mg/dL (0.5-0.9) L 04/22/22 06:30 GFR Calculation 235.5 mL/min (90-130) H 04/22/22 06:30 Glucose 95 mg/dL (65-115) 04/22/22 06:30 Calculated Osmolality 286 mOsm/kg (285-295) 04/22/22 06:30 Calcium 8.8 mg/dL (8.5-10.5) 04/22/22 06:30 Total Bilirubin 0.4 mg/dL (0.15-1.2) 04/22/22 06:30 AST 26 U/L (0-32) 04/22/22 06:30 ALT 22 U/L (0-33) 04/22/22 06:30 Alkaline Phosphatase 76 IU/L (35-105) 04/22/22 06:30 Troponin T Baseline 6 ng/L (0-10) 04/19/22 19:30 Troponin T 120 Minute 6.00 ng/L (0-10) 04/19/22 21:30 Delta Troponin T 0 ABS# (0-10) 04/19/22 21:30 Troponin T Hi Sens 6Hr 6.00 ng/L (0-10) 04/20/22 01:30 Troponin T Hi Sens 6Hr Delta 0 ng/L (0-12) 04/20/22 01:30 C-Reactive Protein 6.8 mg/L (0.0-4.9) H 04/21/22 05:07 NT-Pro-B Natriuret Pep 373 pg/mL (0-125) H 04/19/22 19:30 Total Protein 6.8 g/dL (6.6-8.7) 04/22/22 06:30 Albumin 3.5 g/dL (3.5-5.2) 04/22/22 06:30 Globulin 3.3 g/dL (1.3-4.6) 04/22/22 06:30 Procalcitonin 0.03 ng/mL (0-0.5) 04/21/22 05:07 Urine Color Colorless (Yellow) 04/20/22 16:26 Urine Appearance Clear (CLEAR) 04/20/22 16:26 Urine pH 8 (5-7) H 04/20/22 16:26 Ur Specific [place] 1.010 (1.005-1.030) 04/20/22 16:26 Urine Protein Neg (Negative) 04/20/22 16:26 Urine Glucose (UA) Norm (Normal) 04/20/22 16:26 Urine Ketones Negative (Negative) 04/20/22 16:26 Urine Blood 2+ (Negative) H 04/20/22 16:26 Urine Nitrate Negative (Negative) 04/20/22 16:26 Urine Bilirubin Neg (Negative) 04/20/22 16:26 Prot Sulfosalicylic Acd Negative (Negative) 04/20/22 16:26 Urine Urobilinogen Norm mg/dL (Negative) 04/20/22 16:26 Ur Leukocyte Esterase Negative (Negative) 04/20/22 16:26 Urine RBC 0-4 /hpf (0-2) H 04/20/22 16:26 Urine WBC 0-4 /hpf (0-5) H 04/20/22 16:26 Ur Squamous Epith Cells 0-4 /hpf (0-5) H 04/20/22 16:26 Amorphous Sediment Not Reportable 04/20/22 16:26 Urine Bacteria None /hpf (NONE) 04/20/22 16:26 Vancomycin Trough 9.0 ug/mL (10-15) L 04/21/22 22:51 Rheumatoid Factor 11.0 IU/mL (0-14) 04/21/22 05:07 ISAAC Screen Cancelled 04/21/22 05:07 ISAAC Titer Cancelled 04/21/22 05:07 ISAAC Titer 2 Cancelled 04/21/22 05:07 ISAAC Titer 3 Cancelled 04/21/22 05:07 ISAAC Pattern Cancelled 04/21/22 05:07 ISAAC Pattern 2 Cancelled 04/21/22 05:07 ISAAC Pattern 3 Cancelled 04/21/22 05:07 Anti-ds DNA IgG Ab Cancelled 04/21/22 05:07 Mitochon/Sm Musc Ab Titr Cancelled 04/21/22 05:07 Mitochondrial DNA Scrn Cancelled 04/21/22 05:07 Vitals Last Vital Signs Temp 98.5 F 04/22/22 08:00 Pulse 88 04/22/22 08:00 Resp 16 04/22/22 08:00 BP 135/86 04/22/22 08:00 Pulse Ox 95 04/22/22 08:00 Discharge Plan Discharge Patient Disposition: Home Condition: Stable Prescriptions: New Augmentin 500-125 mg tablet 1 tab PO BID 14 Days Qty: 28 0RF levofloxacin 750 mg tablet 750 mg PO DAILY 14 Days Qty: 14 0RF Continued albuterol sulfate [ProAir HFA] 90 mcg/actuation HFA aerosol inhaler 2 puff inhalation QID PRN (Reason: shortness of breath or wheezing) Qty: 6.7 0RF naproxen 250 mg Tablet 250 mg PO BID 0RF phenylephrine-guaifenesin 2.5-100 mg/5 mL Liquid 20 ml PO Q4H PRN (Reason: Cough) 0RF Discontinued levofloxacin 500 mg tablet 500 mg PO DAILY Qty: 7 0RF prednisone 50 mg tablet 50 mg PO DAILY Qty: 5 0RF Discharge Orders: Discharge Order (Routine); Ordered 04/22/22 Ordered By: Edmundo Guerrero Other Ambulatory Orders: CT chest w con* [id number] (Routine) Timeframe: 2 Weeks Facility: [facility] - Location: [facility] [place] [facility] Ordered By: Edmundo Guerrero Referrals: Kobe Burden MD [Physician] - 05/10/22 2:45 pm [place] Ramesh MD [Physician] - 07/14/22 2:45 pm Discharge Diet: Regular Patient Instructions: Amoxicillin/Clavulanate Potassium (By mouth), Levofloxacin (By mouth), Lump/Mass, Opioid Safety Discharge Attestations Time Spent in Discharge Care*: less than 30 min Quality Metrics Clinical Quality Measures [ No reported AMI, CVA or VTE this stay] Coding Level of Care Code Acute Chg FW DC note Diagnoses Cavitating mass in left upper lung lobe J98.4 Smoking addiction F17.200
[2022-04-22 11:38] LABS: Quantiferon Mitogen >10.00 IU/mL; Quantiferon Nil 0.02 IU/mL; Quantiferon TB Gold NEGATIVE (NEGATIVE)
[2022-04-22 12:00] VITALS: BP 133/85; PULSE 93; RESP 16; TEMP 36.7; O2SAT 95
[2022-04-22 12:48] LABS: Cyclic Citrullinated Peptide <16 UNITS
[2022-04-22 13:23] LABS: THYROID PEROXIDASE ANTIBODIES <1 IU/mL (<9)
[2022-04-22 15:08] LABS: ANA SCREEN, IFA NEGATIVE (NEGATIVE); CENTROMERE B ANTIBODY <1.0 NEG AI (<1.0 NEG); JO-1 ANTIBODY <1.0 NEG AI (<1.0 NEG); RNP ANTIBODY 1.3 POS AI (<1.0 NEG); SCL-70 ANTIBODY <1.0 NEG AI (<1.0 NEG); SJOGREN'S ANTIBODY (SS-A) <1.0 NEG AI (<1.0 NEG); SM ANTIBODY <1.0 NEG AI (<1.0 NEG); SS-B <1.0 NEG AI (<1.0 NEG)
[2022-04-22 17:37] LABS: Fungitell 1-3-B Glucan Assay <31 pg/mL; Interpretation NEGATIVE
[2022-04-23 10:27] LABS: DNA AB (DS) CRITHIDIA,IFA NEGATIVE (NEGATIVE)
[2022-04-23 11:13] LABS: COMPLEMENT COMPONENT C3C 127 mg/dL (83-193); COMPLEMENT COMPONENT C4C 19 mg/dL (15-57)
[2022-04-23 14:03] LABS: ANCA Screen NEGATIVE (NEGATIVE)
[2022-04-23 14:44] LABS: COMPLEMENT, TOTAL (CH50) >60 U/mL (31-60)
[2022-04-24 18:58] LABS: Cryptococcal Source Serum
[2022-04-25 15:48] LABS: Aspergillus AG,EIA,Serum NOT DETECTED; Aspergillus Galactomannan Inde <0.50
[2022-04-26 11:08] LABS: Adenovirus Not Detected (Not Detected); Human Metapneumovirus Not Detected (Not Detected); Human Parainflu Virus 1 Not Detected (Not Detected); Human Parainflu Virus 2 Not Detected (Not Detected); Human Parainflu Virus 3 Not Detected (Not Detected); Human Rsv A Not Detected (Not Detected); Influenza A Not Detected (Not Detected); Influenza B Not Detected (Not Detected); Rhinovirus/Enterovirus Not Detected (Not Detected)
[2022-04-27 09:42] LABS: Histoplasma Antigen (Quant) NONE DETECTED; Histoplasma Antigen Interpreta NEGATIVE; Histoplasma Antigen Specimen URINE
[2022-04-28 18:23] LABS: Coccidioides IgG Antibody NEGATIVE; Coccidioides IgM Antibody NEGATIVE
== END 2022-04-22 13:17 | disposition home or self-care (01) | DRG 178 ==
LOC: ER 04-20 02:47 → MEDSURG 04-20 06:31
PROVIDERS: Admitting Provider Internal Medicine; Emergency Provider Emergency Medicine; Visit Provider Internal Medicine
DX: J85.2 Abscess of lung without pneumonia (principal); R04.2 Hemoptysis; J98.4 Other disorders of lung; F17.200 Nicotine dependence, unspecified, uncomplicated; Z57.2 Occupational exposure to dust
CPT/HCPCS: 36415; 71045; 71250; 80053; 80061; 80202; 81001; 83880; 84145; 84443; 84484; 85025; 85610; 85651; 86036; 86140; 86160; 86162; 86200; 86235; 86255; 86376; 86403; 86431; 86480; 86635; 87040; 87070; 87077; 87186; 87205; 87305; 87385; 87449; 87633; 87641; 93005; 93306; 94760; 96365; 96367; 99285; J2543; J3370; J7050

== ENCOUNTER → 2022-04-26 11:32 | Outpatient (BNVA) | payer OTHER, SELFPAY | PROVIDERS: Visit Provider Nurse Practitioner Family | DX: J98.4 Other disorders of lung (principal); R04.2 Hemoptysis | CPT/HCPCS: 71046 ==

== ENCOUNTER → 2022-05-10 16:34 | Outpatient (BNVA) | payer OTHER, SELFPAY | PROVIDERS: Visit Provider Internal Medicine Pulmonary Disease | DX: J98.4 Other disorders of lung (principal) | CPT/HCPCS: 36415; 85025 ==

== ENCOUNTER 2022-05-12 07:30 | Outpatient (CLI) | payer OTHER, SELFPAY ==
--- NOTE | 2022-05-12 14:15 | PFTS_ITS ---
Date of Study:05/12/22 Date of Dictation: 05/17/2022 MECHANICS: Postbronchodilator forced vital capacity (FVC) is reduced. Postbronchodilator forced expiratory volume in one second (FEV1) is moderately reduced. FEV1/FVC is reduced. There is no significant response to bronchodilator.. FLOW VOLUME LOOP: Sloping of end expiratory limb suggestive of airflow obstruction . LUNG VOLUMES: Total lung capacity (TLC) is normal. Residual volume (RV) is increased. DIFFUSING CAPACITY FOR CARBON MONOXIDE: Mildly reduced . INTERPRETATION: The postbronchodilator spirometry showed moderate airflow obstruction. There is no significant postbronchodilator response. Lung volumes suggestive of air trapping. There is mild gas transfer defect. Clinical correlation recommended. [facility]
== END 2022-05-12 07:31 | disposition home or self-care (01) ==
PROVIDERS: PCP Nurse Practitioner Family; Visit Provider Internal Medicine Pulmonary Disease
DX: J98.4 Other disorders of lung (principal)
CPT/HCPCS: 94060; 94618; 94726; 94729; J7611

== ENCOUNTER 2022-05-25 08:17 | Day surgery (SDC) | payer OTHER, SELFPAY ==
[2022-05-24 12:08] VITALS: BMI 19.8
[2022-05-25] VITALS (21 sets, daily range): BP systolic 115–140; BP diastolic 71–96; PULSE 17–134; RESP 16–30; TEMP 36.2–36.9; O2SAT 85–95
--- NOTE | 2022-05-25 07:44 | P.ANESASSM_ITS ---
Pre-Anesthetic Assessment Height/Weight: Height 1.73 m Weight 58.967 kg Preop Diagnosis: Lung mass Operation Date: 05/25/22 09:35 Proposed Procedures p Ultrasound Biopsy(Not Applicable) - Kobe Burden MD s Ebus(Not Applicable) - Kobe Burden MD Familial anesthetic complications: none Was Beta Harish taken within 24 hours: N/A Was Clonidine taken within 24 hours: N/A Social Tobacco and No alcohol Exam alert, oriented x 3 and regular rate & rhythm wheezing, course lung sounds SASHA Airway Submandibular: within normal limits Cervical ROM: within normal limits Mallampati: Class II Dentition: false Pulmonary Chronic Obstructive Pulmonary Disease Cavitating mass SASHA Denies home O2 use CV/HEM Polycythemia METS > 4 TTE 04/20/22 CONCLUSIONS ?Technically limited quality echocardiogram because of poor ?ultrasonic windows. ?LV systolic function is mildly reduced with EF of 45 to 50%.? ?Mild global hypokinesis. ?No gross valvular abnormalities seen. ?No comparison studies are available None reported K 3.2 on 04/22/22 Hepatic None reported GI None reported Metabolic None reported Musc/skel None reported Neuropsych None reported Anesthetic Plan ASA status: 3 Anesthesia: Anesthesia Evaluation and General Other: We discussed risk and benefits of general anesthesia including PONV, sore throat (sometimes severe), corneal abrasion, positioning and peripheral nerve injuries, life threatening allergic reaction, post operative ICU admission requiring prolonged intubation, aspiration, stroke, heart attack, , and rare incidences of recall. Patient consents to proceed with general anesthesia. Risk of > 500 ml blood loss (7ml/kg in children): No Medications/Allergies Home Medications Medication Instructions Recorded Confirmed Last Taken Type phenylephrine-guaifenesin 2.5 20 ml PO Q4H PRN Cough 04/19/22 05/25/22 05/23/22 History mg-100 mg/5 mL oral liquid albuterol sulfate 90 mcg/actuation 2 puff inhalation DAILY PRN 05/24/22 05/25/22 05/23/22 History aerosol inhaler (ProAir HFA) shortness of breath or wheezing Allergies Allergy/AdvReac Type Severity Reaction Status Date / Time Sulfa (Sulfonamide Allergy Unknown unkn Verified 05/25/22 08:30 Antibiotics) [facility] Anesthesia Medical History Cavitating mass in left upper lung lobe No significant past medical history Smoking addiction Surgical History Hx of foot surgery left Hx of tubal ligation Family History Sister Breast cancer Social History Smoking and tobacco status: current every day smoker Second hand smoke exposure: No Smoking risk assessment/counseling performed?: Yes Alcohol intake: never Desire information about alcohol rehabilitation?: No Counseling given: No Desire information about substance/drug rehabilitation?: No Counseling given: No Adopted: No Caregiver/support person: No Lives independently: Yes Household members: spouse Housing: House Marital status: Number of children: 2 Current occupational status: employed History of recent travel: No Data Anesthesia Cardiac Studies: Echocardiogram 04/20/22
[2022-05-25] MEDS: sodium chloride 0.9% 1,000 ML 30 ML IV ×2 (08:45→11:18)
[2022-05-25 09:41] LABS: OR HCG Qualitative Urine Negative (Negative)
--- NOTE | 2022-05-25 10:16 | W.PM.OPSUD ---
Surgery/Procedure H&P Update DATE OF PROCEDURE: May 25, 2022 DATE H&P PERFORMED: 05/10/22 CHANGES TO PREVIOUS DOCUMENTATION: NONE PREOP DIAGNOSIS: Lung mass PRIMARY INDICATION FOR PROCEDURE: PET active left upper lobe cavitary mass with SUV 16.6 indicating a high probability of malignancy 9 mm nodule in right hilum with SUV 3.6 concerning for contralateral metastatic disease PLANNED PROCEDURE: Operation Date: 05/25/22 09:35 Proposed Procedures p Ultrasound Biopsy(Not Applicable) - Kobe Burden MD s Ebus(Not Applicable) - Kobe Burden MD Related Problem List Diagnoses (1) Suspected lung cancer: (2) Cavitating mass in left upper lung lobe: PET active left upper lobe cavitary mass with SUV 16.6 indicating a high probability of malignancy 9 mm nodule in right hilum with SUV 3.6 concerning for contralateral metastatic disease Today she is scheduled for endobronchial ultrasound guided right hilar lymph node biopsy. Ultrasound-guided left chest mass biopsy (3) Smoking addiction:
--- NOTE | 2022-05-25 12:58 | P.OP_ITS ---
Operative Report Date of procedure: May 25, 2022 Pre-op diagnosis: Preop Diagnosis Lung mass Post-op diagnosis: suspected malignancy Procedure done: Endobrochial ultrasound guided FNAC for hilar and mediastinal lymphnodes Surgeon: Kobe Burden MD Brief History: Ms. Yoselin Cartwright is a 52-year-old female with past medical history of significant smoking was admitted to [facility] on 04/19/2022 for hemoptysis which started 1 month ago.? She was treated with outpatient levofloxacin, prednisone without any improvement meant and so showed up in the emergency 04/19/2022.? Her admission CT chest showed cavitating 8 cm left upper lobe mass. She denies any exposure to tuberculosis, denies any recurrent fevers, does have some sweats at night, denies any unintended weight loss, denies any homelessness or incarceration history.She works for [employer], with a lot of exposure to dust. During hospitalization work-up during admission beta D glucan, galactomannan, Aspergillus studies Cryptococcal studies Coccidioides Rheumatological panel ANCA , Histoplasma study TB QuantiFERON gold, Respiratory viral panel-everything came negative. He was discharged on 04/24/2022 with levofloxacin and Augmentin.? Also during hospital admission she had an echocardiogram which showed reduced ejection fraction 45 to 50% with mild global hypokinesis and no valvular abnormalities. PET/CT 05/15/2022?showed 5.8 x 9 cm left upper lobe cavitary mass with SUV 16.6 indicating a high probability of malignancy;9 mm node in right hilum with SUV 3.6 concerning for contralateral metastatic disease Today patient is scheduled for bronchoscopic evaluation of hilar and mediastinal lymph nodes Procedure: Name of the procedure: 31623:Dx Bronchoscope w/Washings or airway inspection 80457:Dx Bronchoscope w/BAL of left upper lobe 79696:EBUS Sampling >=3 nodes Indication:PET/CT 05/15/2022?showed 5.8 x 9 cm left upper lobe cavitary mass with SUV 16.6 indicating a high probability of malignancy;9 mm node in right hilum with SUV 3.6 concerning for contralateral metastatic disease Anesthesia: General anesthesia. Local anesthesia: The vitaliy in the right and left mainstem bronchi were anesthetized with 1% lidocaine, 3 mL. Description of the procedure: The procedure was explained to the patient and the consent was obtained.? The patient was brought to the OR.? The patient underwent endotracheal tube placement for general anesthesia.? Following induction of general anesthesia, the bronchoscope was advanced through the ET tube.? The distal trachea appeared normal mucosa with no endotracheal lesions.? The vitaliy was sharp.? The vitaliy, the right and left mainstem bronchi are anesthetized with 1% lidocaine.? In a systematic manner bilateral bronchial tree was then examined.? The bronchoscope was advanced into the left mainstem bronchus. The left upper lobe, lingula and left lower lobe bronchi were examined up to the third subsegmental level and no abnormalities were identified.? There is no endobronchial lesion, active bleeding or mucous plug throughout the left tracheobronchial tree. There were clear secretions predominantly from left upper lobe which were suctioned right away. The bronchoscope was then introduced into the right mainstem bronchus.? The right upper lobe, right middle lobe and right lower lobe bronchi were examined up to the third subsegmental level.?There is no endobronchial lesion, active bleeding or mucous plug throughout the right tracheobronchial tree. About 60 cc normal saline was instilled in left upper lobe and able to obtain 9 bronchoalveolar lavage of 25 cc which was sent for Gram stain and cultures, fungal cultures, AFB mycobacterial cultures, cytology Bronchoscope was retracted and endobronchial ultrasound was introduced and transbronchial needle aspiration was obtained sequentially from station 4R, station 7 and station 10 R. There was no overt bleeding and it was easily controlled with instillation of cold saline. Bronchoscope retracted and patient underwent percutaneous left lung mass biopsy under ultrasound guidance, the details of this procedure were documented in a separate note. Samples: 1.? Bronchoalveolar lavage specimen from right upper lobe was sent for cell count and differential,? Gram stain and culture, fungal cultures, AFB cultures, 2.? EBUS guided TB NA samples from station 4R sent for histopathology 3.? EBUS guided TB NA samples from station 7 sent for histopathology 4.? EBUS guided TB NA samples from 10 R were sent for histopathology Complications: Patient was requiring 2 L supplemental oxygen on exertion Postprocedure chest x-ray: No pneumothorax Disposition: Patient is stable for discharge and she was sent in with home O2 evaluation requiring 2 L on exertion Patient and her sister at bedside were updated about the procedure and recommended to follow-up in clinic for biopsy results
--- NOTE | 2022-05-25 13:00 | XRR_ITS ---
PROCEDURE INFORMATION: Exam: XR Chest Exam date and time: 05/25/2022 1:25 PM Age: 52 years old Clinical indication: Device placement; Other: Post ultrasound guided biopsy of left upper lobe mass, prior surgery; Additional info: Post ultrasound guided biopsy of left upper lobe mass, rule out pneumothorax TECHNIQUE: Imaging protocol: Radiologic exam of the chest. Views: 1 view. COMPARISON: CR XR chest 2V* [id number] 04/26/2022 11:31 AM FINDINGS: Lungs: Again noted is the pleural base mass over the lateral aspect of the left hemithorax which is similar to prior study. The right lung remains clear. Pleural spaces: There is no pneumothorax. Heart/Mediastinum: Unremarkable. No cardiomegaly. Bones/joints: Unremarkable. XR/XR chest 1V portable [id number] IMPRESSION: 1. Large pleural base mass over the lateral aspect of the left hemithorax similar to the previous study. 2. No pneumothorax.
[2022-05-25] MEDS: lidocaine 1% INJ 20 mL XX (13:07)
--- NOTE | 2022-05-25 13:42 | ANE.PACU2 ---
Inpatient post-anesthesia follow up: Airway intact: Yes Vital signs: Temperature 97.2 F Pulse Rate 118 Respiratory Rate 28 Blood Pressure 124/81 Pulse Oximetry 94 Oxygen Delivery Me thod Simple Mask Oxygen Flow Rate 4 Fraction of Inspir ed Oxygen Hydration adequate: Yes Nausea and vomiting: No Pain level: 1 Mental status: Baseline
--- NOTE | 2022-05-25 15:00 | XRR_ITS ---
PROCEDURE INFORMATION: Exam: XR Chest Exam date and time: 05/25/2022 3:04 PM Age: 52 years old Clinical indication: Device placement; Other: Post bronchoscopy/post lung bx; Shortness of breath; Prior surgery; Surgery date: Post-operative (0-2 days); Additional info: Hopoxia, post bronchoscopy/post lung bx TECHNIQUE: Imaging protocol: Radiologic exam of the chest. Views: 1 view. COMPARISON: CR XR chest 1V portable [id number] 05/25/2022 1:25 PM FINDINGS: Lungs: See Pleural spaces finding. Pleural spaces: Again seen is a soft tissue density/mass, which is likely pleural base, arising from the lateral left mid thorax measuring about 10.4 x 6 cm. There has probably been minimal change versus most recent radiographic exam accounting for some technical differences. No obvious lung consolidation otherwise. No pneumothorax. Heart/Mediastinum: No cardiomegaly. Bones/joints: No acute findings. XR/XR chest 1V portable [id number] IMPRESSION: No pneumothorax or other significant interval change.
--- NOTE | 2022-05-25 16:28 | PC.NURSE ---
Pt was set up with home O2 and educated on use of O2 by Babak from HOME prior to discharge. Pt denied having questions.
--- NOTE | 2022-05-25 19:32 | P.PCN_ITS ---
Procedure Note: Date of procedure: 05/25/22 Pre-procedure diagnosis: Left upper lobe cavitary lesion suspicious for malignancy Post-procedure diagnosis: same Procedure: Time out:??L Time Out Performed : Yes Consent:?? Consent for Proced ure: Consent obtai félix from patient Procedure Narrativ e:?? Name of the proced ure: Ultrasound-gu ided fine-needle a spiration of PET p ositive left upper lobe mass Indica tion: PET/CT 2021?showed 5.8 x 9 cm left upper lo be cavitary mass w ith SUV 16.6 indic ating a high proba bility of malignan cy Anesthesia: Pa tient was already intubated and unde r general anesthes ia by anesthesia t eam for endobronch ial ultrasound of hilar lymph nodes Description of e procedure: The p rocedure was perfo rmed in addition t o endobronchial ul trasound-guided hi lar lymph node bio psies.? After obta ining samples from station 4R, stati on 7, station 10 R using endobronch ial ultrasound, pa tient was placed i n right lateral po sition and left la teral chest tube o n was prepped and covered with steri le drapes. Using ultrasound guidanc e with probe cover ed with sterile co gabriel, the left uppe r lobe mass was id entified and under live ultrasound g uidance, a 21-gaug e needle was used to obtain FNA from the left upper lo be mass. For samp les were obtained. ? Samples were col lected in formalin .? One of the samp les are also prepa red for immediate evaluation. 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
[2022-05-26 10:25] LABS: Apprearance, Bronch Wash Cloudy (CLEAR); Color, Bronc Wash Colorless; Cyto Order Verification Order Verified
[2022-05-26 10:27] LABS: Total Cells Counted Bronch 0
[2022-05-27 08:51] LABS: Lymphoma Profile (BBPL) See Report
[2022-06-04 14:20] LABS: PD-L1 (Clone 22C3) by IHC BBPL See Report
== END 2022-05-25 16:52 | disposition home or self-care (01) ==
PROVIDERS: Anesthesiology; PCP Nurse Practitioner Family; Visit Provider Internal Medicine Pulmonary Disease
PROC: BB4BZZZ Ultrasonography of Pleura (ICD-10-PCS; 2022-05-25 09:35)
PROC: 0BJ08ZZ Inspection of Tracheobronchial Tree, Via Natural or Artificial Opening Endoscopic (ICD-10-PCS; CPT 31622; 2022-05-25 09:35)
DX: C34.90 Malignant neoplasm of unspecified part of unspecified bronchus or lung (principal); J43.9 Emphysema, unspecified; F17.200 Nicotine dependence, unspecified, uncomplicated
CPT/HCPCS: 31622; 31624; 31653; 32408; 71045; 80503; 81025; 84703; 87015; 87070; 87102; 87116; 87205; 87206; 87801; 88108; 88184; 88185; 88305; 88341; 88342; 89050; 94760; J1100; J2405; J2704; J3010; J3490; J7030

== ENCOUNTER 2022-06-02 09:58 | Oncology outpatient (recurring) (ONCR) | payer OTHER, SELFPAY ==
[2022-06-02 12:30] LABS: Basophils # 0.1 10^3/uL (0.0-0.1); Basophils % 0.4 %; Eosinophils # 0.1 10^3/uL (0.0-0.8); Eosinophils % 0.7 %; Hematocrit 43.8 % (37.0-47.0); Hemoglobin 14.8 g/dL (11.5-15.3); Lymphocytes # 1.7 10^3/uL (0.8-4.8); Lymphocytes % 10.2 %; Mean Corpuscular HGB Conc 33.8 g/dL (30.0-36.0); Mean Corpuscular Hemoglobin 35.7 pg (28.0-34.0); Mean Corpuscular Volume 105.5 fl (81-99); Mean Platelet Volume 9.8 fL (7.4-10.4); Monocytes # 1.6 10^3/uL (0.2-0.9); Monocytes % 9.3 %; Neutrophils # 13.23 10^3/uL (1.8-7.7); Neutrophils % 78.7 %; Nucleated Red Blood Cells % 0 %; Platelet Count 358 10^3/cmm (130-400); Red Blood Count 4.15 10^6/uL (4.1-5.3); Red Cell Distribution Width 14.6 % (12.1-15.1); White Blood Count 16.8 10^3/uL (4.0-10.0)
[2022-06-02 12:58] LABS: Alanine Aminotransferase 26 U/L (0-33); Albumin Level 3.4 g/dL (3.5-5.2); Alkaline Phosphatase 108 U/L (35-105); Aspartate Amino Transferase 32 U/L (0-32); Blood Urea Nitrogen 5 mg/dL (6-20); Calcium 9.2 mg/dL (8.5-10.5); Carbon Dioxide 26 mmol/L (22-29); Chloride 99 mmol/L (98-107); Globulin 3.5 g/dL (1.3-4.6); Glomerular Filtration Rate 235.5 mL/min (90-130); Glucose 94 mg/dL (65-115); Osmolality Calculated 279 mOsm/kg (285-295); Sodium 136 mmol/L (136-145); Thyroid Stimulating Hormone 0.57 uIU/mL (0.27-4.20); Total Bilirubin 0.2 mg/dL (0.15-1.2); Total Protein 6.9 g/dL (6.6-8.7)
[2022-06-02 12:59] LABS: Anion Gap 14.7 (5-19); Potassium 3.7 mmol/L (3.5-5.1)
== END 2022-06-02 23:59 | disposition home or self-care (01) ==
PROVIDERS: PCP Nurse Practitioner Family; Visit Provider Internal Medicine Medical Oncology
DX: C34.12 Malignant neoplasm of upper lobe, left bronchus or lung (principal); C77.8 Secondary and unspecified malignant neoplasm of lymph nodes of multiple regions; G89.3 Neoplasm related pain (acute) (chronic); F17.210 Nicotine dependence, cigarettes, uncomplicated; Z79.891 Long term (current) use of opiate analgesic; Z79.899 Other long term (current) drug therapy
CPT/HCPCS: 80053; 84443; 85025

== ENCOUNTER 2022-06-08 13:08 | Day surgery (SDC) | payer OTHER, SELFPAY ==
[2022-06-04 10:57] VITALS: BMI 19.8
[2022-06-08] VITALS (9 sets, daily range): BP systolic 120–141; BP diastolic 72–105; PULSE 106–125; RESP 18–26; TEMP 36.3–36.8; O2SAT 91–96
--- NOTE | 2022-06-08 | SCC_ITS ---
Procedure done: 1. Placement of right subclavian vein PowerPort 2. Fluoroscopic guidance and interpretation for placement of catheter 7.2 seconds of fluoroscopic guidance, for a cumulative dose of 0.69 mGy, was provided to Dr. Stewart by the radiology department. C-arm images of the chest were saved for the patient's permanent record. [facility]
--- NOTE | 2022-06-08 13:13 | SC_ITS ---
WS: [id number] C-arm fluoroscopy Port-A-Cath placement, 06/08/2022 Clinical Data: Powerport Placement Comparison: None. Findings: The Port-A-Cath was inserted into the right internal subclavian vein and ends in the superior vena ca va. SC/C-arm FL for CVA [id number] Impression: Right Port-A-Cath insertion.
[2022-06-08] MEDS: sodium chloride 0.9% 1,000 ML 30 ML IV (13:44)
--- NOTE | 2022-06-08 14:13 | ANES.PREANE2 ---
Pre-Anesthetic Assessment Height/Weight: Height 1.73 m Weight 58.967 kg Temp Pulse Resp BP Pulse Ox O2 Del Method 98.3 F 125 H 18 122/87 94 06/08/22 13:25 06/08/22 13:25 06/08/22 13:25 06/08/22 13:25 06/08/22 13:06/08/22 13:31 Preop Diagnosis: Lung cancer Operation Date: 06/08/22 14:40 Proposed Procedures p Portacath Placement 18147,C34.12(Not Applicable) - Carlos Stewart MD Familial anesthetic complications: None Was Beta Harish taken within 24 hours: N/A Was Clonidine taken within 24 hours: N/A Last intake: Intake Last Liquid Date 06/07/22 Last Liquid Time 22:00 Last Solid Date 06/07/22 Last Solid Time 18:00 Social Alcohol (drinks up to a pint a night) and Tobacco last drink two days ago - no history of seizures Exam alert, oriented x 3, clear to auscultation bilaterally and regular rate & rhythm Airway Mallampati: Class I Dentition: false Pulmonary Chronic Obstructive Pulmonary Disease lung cancer CV/HEM Arrythmia Anesthetic Plan ASA status: 4 Anesthesia: MAC Risk of > 500 ml blood loss (7ml/kg in children): No Medications/Allergies Home Medications Medication Instructions Recorded Confirmed Last Taken Type phenylephrine-guaifenesin 2.5 20 ml PO Q4H PRN Cough 04/19/22 06/08/22 06/05/22 History mg-100 mg/5 mL oral liquid albuterol sulfate 90 mcg/actuation 2 puff inhalation DAILY PRN 05/24/22 06/08/22 06/07/22 History aerosol inhaler (ProAir HFA) shortness of breath or wheezing tiotropium bromide 1.25 2 puff inhalation DAILY #4 grams 05/31/22 06/08/22 06/07/22 Rx mcg/actuation mist for inhalation (Spiriva Respimat) hydrocodone 5 mg-acetaminophen 325 1 - 2 tab PO Q4H PRN pain 30 days 06/03/22 06/08/22 06/07/22 Rx mg tablet #60 tabs acetaminophen 500 mg tablet 500 mg PO Q6H PRN Pain, Mild 06/04/22 06/08/22 06/07/22 History (Acetaminophen Pain Relief) Allergies Allergy/AdvReac Type Severity Reaction Status Date / Time Sulfa (Sulfonamide Allergy Unknown unkn Verified 06/08/22 12:28 Antibiotics) Current Medications Generic Name Dose Route Start Last Admin Trade Name Benji PRN Reason Stop Dose Admin Sodium Chloride 1,000 mls @ 30 mls/hr 06/08/22 13:15 06/08/22 13:44 Sodium Chloride 0.9% IV 06/09/22 13:14 30 mls/hr .Q24H MILENA Administration PFSH Anesthesia Medical History (Updated 06/08/22 @ 12:29 by Ariane Elma) Non-small cell lung cancer Surgical History History of bronchoscopy (05/25/22) Bronchoscopy with EBUS Hx of foot surgery left Hx of tubal ligation Family History Sister Breast cancer Social History Smoking and tobacco status: current every day smoker Second hand smoke exposure: No Smoking risk assessment/counseling performed?: Yes Alcohol intake: never Desire information about alcohol rehabilitation?: No Counseling given: No Desire information about substance/drug rehabilitation?: No Counseling given: No Adopted: No Caregiver/support person: No Lives independently: Yes Household members: spouse Housing: House Marital status: Number of children: 2 Current occupational status: employed History of recent travel: No Data Anesthesia Cardiac Studies: Echocardiogram 04/20/22
--- NOTE | 2022-06-08 14:22 | W.PM.OPSUD ---
Surgery/Procedure H&P Update DATE OF PROCEDURE: June 08, 2022 DATE H&P PERFORMED: 06/03/22 H&P UPDATE INFORMATION: I have reviewed H&P completed within last 30 days, I have examined patient prior to procedure and No changes to prior documentation PREOP DIAGNOSIS: Lung cancer PRIMARY INDICATION FOR PROCEDURE: The same PLANNED PROCEDURE: Operation Date: 06/08/22 14:40 Proposed Procedures p Portacath Placement 75196,C34.12(Not Applicable) - Carlos Stewart MD
[2022-06-08] MEDS: ceFAZolin 2,000 MG in sodium chloride 0.9% (plus) 50 ML 100 MG IV (14:42)
[2022-06-08] MEDS: lidocaine 2% INJ 20 mL INJECTION (15:14)
[2022-06-08] MEDS: heparin, porcine 1,000 unit/mL INJ 10 mL 10000 UNIT INJECTION (15:16)
--- NOTE | 2022-06-08 15:20 | PM.OP ---
Operative Report Date of procedure: June 08, 2022 Pre-op diagnosis: Preop Diagnosis Lung cancer Post-op diagnosis: The same Post-op findings: Normal right subclavian vein anatomy Procedure done: 1. Placement of right subclavian vein PowerPort 2. Fluoroscopic guidance and interpretation for placement of catheter Surgeon: Carlos Stewart MD Firmware Test Engineer: cutter grind tool technician Mignon and Khushbu Circulating nurses Letitia and Raven Anesthesia: MAC (veterinarian laboratory animal care Paula and Abdoul) Estimated blood loss (mL): 5 Procedure: RIGHT SUBCLAVIAN VEIN Patient was identified in the holding area and taken to the operative room and placed in supine position IV propofol was given by the anesthesia provider ,both arms were tucked,Time-out was done verifying the patient's name/date of /planned procedure and destination after the procedure, all were in agreement. SCDs confirmed to be functioning, preoperative antibiotics administered per protocol, and beta ryan protocol was confirmed, appropriate positioning of the patient was done by me. Medications were reviewed to assess for anticoagulant usage. Risks and benefits and prevention of central line associated blood stream infection (CLABSI) were discussed with the patient/CPOA, and a consent was obtained. Monitors were in place and monitored throughout the procedure. All necessary supplies were available prior to start. Hand hygiene was completed prior to starting. Maximum barrier technique was utilized including a sterile gown, sterile gloves with a hat and mask. Site was was prepped with [chlorhexidine] and a full body drape was placed. 5 mL of 2% lidocaine was injected into the skin with a 25 gauge needle. Prep& drape was done under the usual sterile technique, lidocaine 2% was injected at the site of the stick, started by right sub-clavian vein stick that retrieved venous blood was obtained from the first stick, a guide wire was then threaded and under the guidance of fluoroscopy position was confirmed to be in the IVC and my interpretation, there were no PVC changes, at that point the guide wire was secured to the drapes with a hemostat and the needle was taken out, attention was then deviated towards creation of a pocket for the port were lidocaine 2% was injected using an 15 blade knife skin incision was created dissection using the Bovie to create a pocket for the Power Port to be accommodated. Hemostasis was secured, after the port being appropriately flushed it was inserted into the pocket and a tunneler was used to accommodate the catheter of the port catheter to be delivered through the incision first created at the site of the stick, at that point under fluoroscopy an estimated length was measured for the catheter and was cut at the designed level, followed by that a dilator with the sheath introduced onto the guide wire the dilator and the wire were retrieved and the catheter of the port was introduced via the sheath where it was peeled off and the catheter maintained to be in the SVC that was confirmed with fluoroscopy, and the fluoroscopy interpretation was done by me throughout the entire procedure. The port was kept in its pocket,3-0 Vicryl deep subdermal interrupted sutures, skin was then closed by 4-0 Monocryl as subcuticular closure.The port was appropriately flushed with heparin and venous blood was withdrawn without difficulty.The stick site was closed by 4-0 Monocryl and Dermabond was used followed by dressing.Count was correct at the end of the procedure.Patient tolerated the procedure well was taken to the recovery area. I was present for the whole entire procedure. Position of the catheter was checked with a postoperative chest x-ray and it was in good position without evidence of pneumothorax
--- NOTE | 2022-06-08 15:21 | XRR_ITS ---
PROCEDURE INFORMATION: Exam: XR Chest Exam date and time: 06/08/2022 3:34 PM Age: 52 years old Clinical indication: Device placement; Other: Right subclavian vein powerport placement; Prior surgery; Surgery date: Post-operative (0-2 days); Additional info: Status post right subclavian vein powerport placement TECHNIQUE: Imaging protocol: Radiologic exam of the chest. Views: 1 view. COMPARISON: CR XR chest 1V portable [id number] 05/25/2022 3:04 PM FINDINGS: Tubes, catheters and devices: Right chest wall infusion port with subclavian access and catheter tip in the lower SVC. Lungs: The lung bases are suboptimally assessed due to technique however the upper lungs are clear of focal consolidation. Pleural spaces: Unremarkable. No pleural effusion. No pneumothorax. Heart/Mediastinum: Cardiac silhouette appears normal in size. No obvious vascular congestion. Bones/joints: See below. Soft tissues: Interval increase in size of the soft tissue mass arising from the left mid chest wall now measuring about 11.4 cm craniocaudad, versus 9.8 cm previously. There is fracture/pathologic fracture and some osseous destruction involving the lateral aspect of left 5th rib, new since previous exam. Other findings: Single view was submitted. XR/XR chest 1V portable [id number] IMPRESSION: 1. Right subclavian port placement as described. 2. Interval increase of left soft tissue mass with adjacent osseous destruction/pathologic fracture.
--- NOTE | 2022-06-08 16:17 | PC.NURSE ---
spoke to Deena in oncology. Patients port was tubed and she is ready to start treatments.
--- NOTE | 2022-06-08 17:30 | ANE.PACU2 ---
Inpatient post-anesthesia follow up: Airway intact: Yes Vital signs: Temperature 97.9 F Pulse Rate 115 Respiratory Rate 18 Blood Pressure 141/97 Pulse Oximetry 93 Oxygen Delivery Me thod Room Air Oxygen Flow Rate Fraction of Inspir ed Oxygen Hydration adequate: Yes Nausea and vomiting: No Pain level: 1 Mental status: Baseline
== END 2022-06-08 16:27 | disposition home or self-care (01) ==
PROVIDERS: PCP Nurse Practitioner Family; Visit Provider Surgery
PROC: (CPT 36561; principal; 2022-06-08 14:40)
DX: C34.12 Malignant neoplasm of upper lobe, left bronchus or lung (principal); J44.9 Chronic obstructive pulmonary disease, unspecified; Z88.2 Allergy status to sulfonamides; F17.200 Nicotine dependence, unspecified, uncomplicated
CPT/HCPCS: 36561; 71045; 76000; 77001; C1788; J1644; J2250; J2704; J3010; J7030

== ENCOUNTER 2022-07-02 16:58 | Emergency (ER) | payer OTHER, SELFPAY ==
[2022-07-02] VITALS (8 sets, daily range): BP systolic 91–118; BP diastolic 61–72; PULSE 100–118; RESP 15–20; TEMP 36.4–36.7; O2SAT 92–94; BMI 19.8
--- NOTE | 2022-07-02 17:46 | W.ED.GENADLT ---
HPI - General Adult General: Chief complaint: General Medical Stated complaint: wants fluids Time Seen by Provider: 07/02/22 17:40 History of Present Illness: Patient is a 52-year-old female with a history of lung cancer followed with Dr. Chapman presenting to the emergency with complaint generalized weakness, decreased p.o. intake vomiting abdominal distention and jaundice. Patient has been having abdominal distention and jaundice for the last 2 weeks. Patient reports that every time she eats she has reflux-like symptoms and throws up. Patient reports decreased appetite and food. Patient denies any cough, runny nose sore throat, chest pain or shortness of breath. Patient denies any diarrhea melena or hematochezia. No complaints. Onset:2 weeks ago Duration:2 weeks Location:home Severity:moderate Associated symptoms: Reports nausea and vomiting; Deny chest pain, dyspnea, rash or palpitations Review of Systems Const: Denies: fever(s) or chills Eyes: Reports: other (+jaundice); Denies: change in vision ENMT: Denies: mouth pain Card: Denies: chest pain or palpitations Resp: Denies: dyspnea or non-productive cough GI: Reports: nausea, vomiting and other (+abdominal distension); Denies: abdominal pain or diarrhea : Denies: dysuria Musc: Denies: extremity pain Skin/Breast: Denies: rash or new lesions Neuro: Denies: weakness in extremities Psych: Reports: other (Normal mood) Reinaldo/Lymph: Denies: easy bruising PFSH ED PFSH: Medical History Non-small cell lung cancer Renal lesion Surgical History History of bronchoscopy (05/25/22) Bronchoscopy with EBUS Hx of foot surgery left Hx of tubal ligation Family History Sister Breast cancer Mother , at age 56 Cancer Breast Social History Smoking and tobacco status: current every day smoker Second hand smoke exposure: No Smoking risk assessment/counseling performed?: Yes Alcohol intake: current Alcohol intake frequency: few times a week Desire information about alcohol rehabilitation?: No Counseling given: No Desire information about substance/drug rehabilitation?: No Counseling given: No Adopted: No Caregiver/support person: No Lives independently: Yes Household members: spouse Housing: House Marital status: Number of children: 2 Current occupational status: employed History of recent travel: No Physical Exam Const: COMMON NORMALS: alert HENMT: COMMON NORMALS: atraumatic HEAD & SCALP: atraumatic MOUTH: moist mucous membranes not abnormal Eye: COMMON NORMALS: EOMs intact bilaterally OTHER: +mild scleral icterus b/l Neck/C-Spine: COMMON NORMALS: full ROM and supple Resp: COMMON NORMALS: normal respiratory effort and clear to auscultation bilaterally AUSCULTATION: clear to auscultation bilaterally Cardio: COMMON NORMALS: regular rate RATE: regular rate OTHER: 2+ radial pulses b/l GI: COMMON NORMALS: Soft to palpation PALPATION: Yes Soft to palpation OTHER: +Abdominal distension, +mild diffuse tendernress to palpation, no guarding rebound, guarding, rigidity. No CVA tenderness to percussion. Neg Graham/Neg McBurney's point tenderness, no suprabupic tenderness to palpation. Extremity: COMMON NORMALS: full ROM Neuro: SENSORIUM/ORIENTATION: Yes alert MOTOR EXAM: No Abnormal motor strength present and Other motor observations present (no focal motor deficits) Psych: COMMON NORMALS: speech normal SPEECH: Yes normal speech MOOD & AFFECT: Yes euthymic mood Course Vital Signs: Vital signs: Vital Signs Temperature 97.6 F 07/02/22 21:49 Pulse Rate 114 H 07/02/22 21:49 Respiratory Rate 15 07/02/22 21:49 Blood Pressure 109/61 07/02/22 21:49 Pulse Oximetry 92 07/02/22 21:49 Oxygen Delivery Me thod 07/02/22 21:49 MDM - General Adult Medical Decision Making Patient is a 52-year-old female with a history of lung cancer followed with Dr. Chapman presenting to the emergency with complaint generalized weakness, decreased p.o. intake vomiting abdominal distention and jaundice. On exam, patient has bilateral skills or icterus. Patient has abdominal distention with diffuse tenderness palpation. Lab work-up showed white count 59,000K. Sodium 109. X-ray showed large left-sided pleural effusion. Patient received vancomycin and Zosyn in the ER. Lactic acid sent. Blood culture pending. Patient received 1 L of normal saline. Patient continues to be in normal mentation. Since patient has a T bili of 12. CT abdomen pelvis showed pancreatic mass with intrahepatic and extrahepatic dilation. Given white count, we will suspect that this is an acute obstructive biliary infection. At the present time, given the fact that we do not have a GI specialist and we do not have pulmonology coverage, we will transfer patient for definitive care. Case was discussed with Dr. Merchant who agreed with the transfer to [facility] for management of biliary obstruction, hyponatremia, large lung mass with pleural effusion, and sepsis. Disposition: Transfer to outside hospital Lab Data : 07/02/22 18:18 07/02/22 18:18 Radiology Impressions Chest X-Ray 07/02/22 17:45 IMPRESSION: Large volume left pleural effusion with atelectasis of the mid and lower left lung. Chest/Abdomen/Pelvis CT 07/02/22 17:59 IMPRESSION: 1. Comparison chest CT 04/19/2022. Significant interval progression of large thoracic masses, likely arising from the lateral left pleura with destruction of regional ribs and invasion through the chest wall. There is also in new moderate left pleural effusion with adjacent compressive atelectasis versus developing pneumonia. Follow-up should be obtained. New metastatic lesion is also noted in the left anterior inferolateral chest wall just above the diaphragm. 2. Interval progression of multi regional thoracic enlarged adenopathy. IMPRESSION: 1. Extensive soft tissue masses in multiple regions including the proximal pancreas/peripancreatic region, most likely representing metastatic disease. Primary pancreatic malignancy with regional invasion is less likely but may also be considered. Comparison prior imaging study should be obtained.. There is regional vascular encasement/occlusion as described above. There is also distal CBD obstruction with intrahepatic and proximal extrahepatic bile duct dilatation. 2. Small amount of pelvic ascites with probable peritoneal carcinomatosis. 3. 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 No hydronephrosis on either side. Bilateral renal involvement by metastatic lesions may be present. 4. Otherwise no acute bowel obstruction, free air or pneumatosis. Laboratory Results WBC 59.0 10^3/uL (4.0-10.0) H* 07/02/22 18:18 RBC 3.63 10^6/uL (4.1-5.3) L 07/02/22 18:18 Hgb 12.8 g/dL (11.5-15.3) 07/02/22 18:18 Hct 34.5 % (37.0-47.0) L 07/02/22 18:18 MCV 95.0 fl (81-99) 07/02/22 18:18 MCH 35.3 pg (28.0-34.0) H 07/02/22 18:18 MCHC 37.1 g/dL (30.0-36.0) H 07/02/22 18:18 RDW 13.7 % (12.1-15.1) 07/02/22 18:18 Plt Count 381 10^3/cmm (130-400) 07/02/22 18:18 MPV 11.3 fL (7.4-10.4) H 07/02/22 18:18 Neut % (Auto) 89.8 % 07/02/22 18:18 Lymph % (Auto) 2.0 % 07/02/22 18:18 [place] % (Auto) 3.6 % 07/02/22 18:18 Eos % (Auto) 0.2 % 07/02/22 18:18 Baso % (Auto) 0.1 % 07/02/22 18:18 Neut # (Auto) 52.98 10^3/uL (1.8-7.7) H 07/02/22 18:18 Lymph # (Auto) 1.2 10^3/uL (0.8-4.8) 07/02/22 18:18 [place] # (Auto) 2.1 10^3/uL (0.2-0.9) H 07/02/22 18:18 Eos # (Auto) 0.1 10^3/uL (0.0-0.8) 07/02/22 18:18 Baso # (Auto) 0.0 10^3/uL (0.0-0.1) 07/02/22 18:18 Nucleated RBC % (auto) 0 % 07/02/22 18:18 Nucleated RBCs # 0.0 /100WBC 07/02/22 18:18 Sodium 109 mmol/L (136-145) L* 07/02/22 18:18 Potassium 4.4 mmol/L (3.5-5.1) 07/02/22 18:18 Chloride 69 mmol/L (98-107) L 07/02/22 18:18 Carbon Dioxide 30 mmol/L (22-29) H 07/02/22 18:18 Anion Gap 14.4 (5-19) 07/02/22 18:18 BUN 27 mg/dL (6-20) H 07/02/22 18:18 Creatinine 0.4 mg/dL (0.5-0.9) L 07/02/22 18:18 GFR Calculation 169.0 mL/min (90-130) H 07/02/22 18:18 Glucose 87 mg/dL (65-115) 07/02/22 18:18 Calculated Osmolality 232 mOsm/kg (285-295) L 07/02/22 18:18 Lactic Acid 1.7 mmol/L (0.5-2.2) 07/02/22 19:21 Calcium 13.4 mg/dL (8.5-10.5) H 07/02/22 18:18 Magnesium 1.6 mg/dL (1.7-2.3) L 07/02/22 18:18 Total Bilirubin 12.1 mg/dL (0.15-1.2) H* 07/02/22 18:18 AST 232 U/L (0-32) H 07/02/22 18:18 ALT 197 U/L (0-33) H 07/02/22 18:18 Alkaline Phosphatase 1138 U/L (35-105) H* 07/02/22 18:18 Total Protein 5.7 g/dL (6.6-8.7) L 07/02/22 18:18 Albumin 2.4 g/dL (3.5-5.2) L 07/02/22 18:18 Globulin 3.3 g/dL (1.3-4.6) 07/02/22 18:18 Lipase 33 U/L (13-60) 07/02/22 18:18 Urine Color Dark yellow (Yellow) 07/02/22 18:53 Urine Appearance Clear (CLEAR) 07/02/22 18:53 Urine pH 5.5 (5-7) 07/02/22 18:53 Ur Specific [place] 1.015 (1.005-1.030) 07/02/22 18:53 Urine Protein Trace (Negative) A 07/02/22 18:53 Urine Glucose (UA) Negative (Normal) 07/02/22 18:53 Urine Ketones Trace (Negative) A 07/02/22 18:53 Urine Blood Trace-intact (Negative) A 07/02/22 18:53 Urine Nitrate Negative 07/02/22 18:53 Urine Bilirubin 3+ (Negative) 07/02/22 18:53 Urine Urobilinogen 0.2 mg/dL (Negative) 07/02/22 18:53 Ur Leukocyte Esterase Trace (Negative) A 07/02/22 18:53 Urine RBC 0-4 /hpf (0-2) H 07/02/22 18:53 Urine WBC 0-4 /hpf (0-5) H 07/02/22 18:53 Ur Squamous Epith Cells 0-4 /hpf (0-5) H 07/02/22 18:53 Amorphous Sediment Not Reportable 07/02/22 18:53 Urine Bacteria 2+ /hpf (NONE) H 07/02/22 18:53 Imaging Data Other Imaging: Radiologist's impression: [address] [address] XRay Report Signed Patient: Yoselin Jung Unit #: [id number] : 1970 Age/Sex: 52 / F ADM Date: 07/02/22 Loc: ER Room/Bed: Attending Dr: Ordering Provider/Ordering MD: Luis Angel Aguilar MD Date of Service: 07/02/22 Procedure(s): XR chest 1V portable [id number] Accession Number(s): [id number] Report Number: [id number] PROCEDURE INFORMATION: Exam: XR Chest Exam date and time: 07/02/2022 6:19 PM Age: 52 years old Clinical indication: Condition or disease; Lung condition and disease; Cancer of the lung; Left; Lobular, lobe not specified; Additional info: Eval pneumonia TECHNIQUE: Imaging protocol: Radiologic exam of the chest. Views: 1 view. COMPARISON: CR XR chest 1V portable [id number] 06/08/2022 3:34 PM FINDINGS: Tubes, catheters and devices: Right chest port terminates in the mid SVC. Lungs: Atelectasis of the mid and lower left lung. Pleural spaces: Large volume left pleural effusion. No pneumothorax. Heart/Mediastinum: Cardiac silhouette is obscured. Bones/joints: Visualized osseous structures are intact. XR/XR chest 1V portable [id number] IMPRESSION: Large volume left pleural effusion with atelectasis of the mid and lower left lung. ? Dictated By: Melo Nieto DO Signed By: Melo Nieto DO Signed Date/Time: 07/02/221854 DD/ [address] [address] [address] Scan Report Signed Patient: Yoselin Jung Unit #: [id number] : 1970 Age/Sex: 52 / F ADM Date: 07/02/22 Loc: ER Room/Bed: Attending Dr: Ordering Provider/Ordering MD: Luis Angel Aguilar MD Date of Service: 07/02/22 Procedure(s): CT chest abd pel w con* Accession Number(s): [id number] Report Number: [id number] PROCEDURE INFORMATION: Exam: CT Chest With Contrast; Diagnostic Exam date and time: 07/02/2022 6:57 PM Age: 52 years old Clinical indication: Other: Jaundice; Abd distention; Other: Lung CA, dyspnea; Patient HX: Port placement for chemo; Lung CA; Additional info: Jaundice, abdominal distension, diffuse pain TECHNIQUE: Imaging protocol: Diagnostic computed tomography of the chest with contrast. Radiation optimization: All CT scans at this facility use at least one of these dose optimization techniques: automated exposure control; mA and/or kV adjustment per patient size (includes targeted exams where dose is matched to clinical indication); or iterative reconstruction. Contrast material: OMNIPAQUE 350; Contrast volume: 80 ml; Contrast route: INTRAVENOUS (IV);? COMPARISON: CT chest wo con [id number] 04/19/2022 10:03 PM RADIATION DOSE METRICS: Total DLP (mGy-cm): 799.61 FINDINGS: Tubes, catheters and devices: Right chest wall infusion port with catheter tip in the cavoatrial region. Lungs: Several tiny bilateral apical subpleural blebs. Pleural spaces: Moderate-large left pleural effusion, increased since prior exam. Again seen is heterogeneous left lateral soft tissue mass, likely arising from the pleura, measuring 8.5 x 9.2 cm with invasion through the chest wall into the extra thoracic soft tissue with regional rib destruction, increased since prior exam. There is a new pleural base/chest wall mass in the left anterior inferior chest wall , measuring about 4.9 x 3.7 cm. Heart: No cardiomegaly. No pericardial effusion. No obvious coronary calcification. Lymph nodes: New subcarinal low-density enlarged adenopathy measuring 17 mm. A few enlarged right hilar lymph nodes are also noted, measuring up to 17 mm short axis. These findings are suspicious for progression of metastatic disease. Nonenlarged calcified subcarinal and bilateral hilar lymph nodes are also noted consistent with chronic granulomatous disease. Multiple cardiophrenic lymph nodes and small soft tissue nodularity is within the anterior epicardial fat are noted, new since prior exam suggesting metastatic disease, measuring up to 9 mm. Vasculature: Unremarkable. No aortic aneurysm.? Bones/joints: There is a slightly displaced fracture/pathologic fracture of the left lateral 4th rib. Extensive left 5th lateral rib destruction is noted with probable pathologic fracture. Soft tissues: See Lymph nodes finding. PROCEDURE INFORMATION: Exam: CT Abdomen And Pelvis With Contrast Exam date and time: 07/02/2022 6:57 PM Age: 52 years old Clinical indication: Other: Jaundice; Abd distention; Other: Lung CA, dyspnea; Patient HX: Port placement for chemo; Lung CA; Additional info: Jaundice, abdominal distension, diffuse pain TECHNIQUE: Imaging protocol: Computed tomography of the abdomen and pelvis with contrast. Radiation optimization: All CT scans at this facility use at least one of these dose optimization techniques: automated exposure control; mA and/or kV adjustment per patient size (includes targeted exams where dose is matched to clinical indication); or iterative reconstruction. Contrast material: OMNIPAQUE 350; Contrast volume: 80 ml; Contrast route: INTRAVENOUS (IV);? COMPARISON: CT chest [facility] [id number] 04/19/2022 10:03 PM RADIATION DOSE METRICS: Total DLP (mGy-cm): 799.61 FINDINGS: Liver: Mild hepatomegaly with diffuse steatosis. No discrete hepatic lesions. There is moderate intrahepatic and proximal extrahepatic bile duct dilatation with abrupt distal CBD cutoff suggesting tumor obstruction of the distal CBD. Multiple hypodense/cystic lesions are also noted throughout the pancreatic body and tail with no obvious main pancreatic ductal dilatation. Gallbladder and bile ducts:? Distended gallbladder with no large calcified calculi. There is probable minimal gallbladder wall thickening. No obvious signs of acute cholecystitis.. Pancreas: There is heterogeneous mass consisting of enhancing solid and heterogeneous cystic components in the pancreatic head region. The margin is ill-defined but is estimated to be approximately 4.5 by 4 cm with regional soft tissue stranding. Spleen: Normal spleen size with multiple calcified splenic granulomas.? Nonspecific hypodense lesion in the spleen measuring 5 mm. Adrenal glands: Left adrenal gland is probably replaced by metastatic disease. Minimal nodular thickening of right adrenal gland which may represent small metastatic lesion. Kidneys and ureters: There is heterogeneous densities in the perinephric and pararenal spaces on the left suggesting extensive metastatic involvement. An element of hemorrhage may also be present in this setting and follow-up should be obtained. The left kidney is displaced anteriorly due to extensive perinephric and paranephric processes. Ill-defined hypodense area in the posterior left lower pole may be related to metastatic tumor involvement, measuring about 2 cm. No hydronephrosis on either side. A few hypodense right renal lesions are noted, probably simple cysts, measuring up to 12 mm however some lesions are too small to characterize and metastatic lesions cannot be excluded. Stomach and bowel: No bowel obstruction or pneumatosis. Small to moderate stool burden. Appendix: No evidence of appendicitis. Intraperitoneal space: Small amount of pelvic ascites. There is mild diffuse haziness within the anterior mesentery with some nodularity within the anterior superior omentum, suspicious for peritoneal carcinomatosis. No free air. Vasculature: There is tumor encasement resulting in near complete obstruction of the splenic/portal vein confluence. There is also mild luminal narrowing of proximal portal vein by regional malignancy. The left renal vein is not visualized and is likely encase/obstructed by the regional malignancy. Right renal vein is patent. The proximal celiac artery, SMA and renal arteries are partially encased by the regional neoplastic process but remain patent. Dilated left gonadal vein, likely sequela of left renal vein obstruction. Lymph nodes: No enlarged lymph nodes. Urinary bladder: Unremarkable as visualized. Reproductive: Unremarkable as visualized. Bones/joints: Osteopenia. No large osseous destruction in the lower spine and bony pelvis. Soft tissues:? No ventral or inguinal hernia.. Other findings: Heterogeneous solid mass is noted abutting the distal pancreatic tail, measuring 2.8 by 2.2 cm, probably metastatic disease. CT/CT chest abd pel w con* IMPRESSION: 1. Comparison chest CT 04/19/2022. Significant interval progression of large thoracic masses, likely arising from the lateral left pleura with destruction of regional ribs and invasion through the chest wall. There is also in new moderate left pleural effusion with adjacent compressive atelectasis versus developing pneumonia. Follow-up should be obtained. New metastatic lesion is also noted in the left anterior inferolateral chest wall just above the diaphragm. 2. Interval progression of multi regional thoracic enlarged adenopathy. ? ? IMPRESSION: 1. Extensive soft tissue masses in multiple regions including the proximal pancreas/peripancreatic region, most likely representing metastatic disease. Primary pancreatic malignancy with regional invasion is less likely but may also be considered. Comparison prior imaging study should be obtained.. There is regional vascular encasement/occlusion as described above. There is also distal CBD obstruction with intrahepatic and proximal extrahepatic bile duct dilatation. 2. Small amount of pelvic ascites with probable peritoneal carcinomatosis. 3. 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 No hydronephrosis on either side.? Bilateral renal involvement by metastatic lesions may be present. 4. Otherwise no acute bowel obstruction, free air or pneumatosis. ? ? Dictated By: Kimberlyn Harrison MD Signed By: Kimberlyn Harrison MD Signed Date/Time: 07/02/222018 DD/ 185 Discharge Plan Discharge Patient Disposition: Transfer to ED Clinical Impression: Sepsis, Biliary obstruction, Pleural effusion, Lung mass, Hyponatremia Condition: Stable Prescriptions: No Action Spiriva Respimat 1.25 mcg/actuation mist 2 puff inhalation DAILY Qty: 4 0RF hydrocodone-acetaminophen 10-325 mg tablet 1 tab PO QID PRN (Reason: pain) 30 Days Qty: 120 0RF furosemide [Lasix] 40 mg tablet 40 mg PO DAILY Qty: 30 0RF pantoprazole [Protonix] 40 mg tablet,delayed release (DR/EC) 40 mg PO DAILY Qty: 30 0RF ondansetron 4 mg tablet,disintegrating 4 mg PO Q8H PRN (Reason: nausea and vomiting) Qty: 60 0RF albuterol sulfate [ProAir HFA] 90 mcg/actuation HFA aerosol inhaler 2 puff inhalation DAILY PRN (Reason: shortness of breath or wheezing) prochlorperazine maleate [Compazine] 10 mg tablet 10 mg PO Q4H PRN (Reason: Mild Nausea) Qty: 30 3RF dexamethasone 4 mg tablet 20 mg PO DIRECTED Qty: 40 3RF Rx Instructions: Take 20 mg (5 Tabs) 12 hours and 6 hours prior to Taxol Treatment acetaminophen [Acetaminophen Pain Relief] 500 mg Tablet 500 mg PO Q6H PRN (Reason: Pain, Mild) tramadol 50 mg tablet 50 mg PO Q6H PRN (Reason: pain) Qty: 20 0RF Referrals: Jessica Falcon FNP-C [Primary Care Provider] - Coding Level of Care Code ED Labor Employment Associate for Chg Fwd Exam Comprehensive
--- NOTE | 2022-07-02 17:59 | CTR_ITS ---
PROCEDURE INFORMATION: Exam: CT Chest With Contrast; Diagnostic Exam date and time: 07/02/2022 6:57 PM Age: 52 years old Clinical indication: Other: Jaundice; Abd distention; Other: Lung CA, dyspnea; Patient HX: Port placement for chemo; Lung CA; Additional info: Jaundice, abdominal distension, diffuse pain TECHNIQUE: Imaging protocol: Diagnostic computed tomography of the chest with contrast. Radiation optimization: All CT scans at this facility use at least one of these dose optimization techniques: automated exposure control; mA and/or kV adjustment per patient size (includes targeted exams where dose is matched to clinical indication); or iterative reconstruction. Contrast material: OMNIPAQUE 350; Contrast volume: 80 ml; Contrast route: INTRAVENOUS (IV); COMPARISON: CT chest wo con [id number] 04/19/2022 10:03 PM RADIATION DOSE METRICS: Total DLP (mGy-cm): 799.61 FINDINGS: Tubes, catheters and devices: Right chest wall infusion port with catheter tip in the cavoatrial region. Lungs: Several tiny bilateral apical subpleural blebs. Pleural spaces: Moderate-large left pleural effusion, increased since prior exam. Again seen is heterogeneous left lateral soft tissue mass, likely arising from the pleura, measuring 8.5 x 9.2 cm with invasion through the chest wall into the extra thoracic soft tissue with regional rib destruction, increased since prior exam. There is a new pleural base/chest wall mass in the left anterior inferior chest wall , measuring about 4.9 x 3.7 cm. Heart: No cardiomegaly. No pericardial effusion. No obvious coronary calcification. Lymph nodes: New subcarinal low-density enlarged adenopathy measuring 17 mm. A few enlarged right hilar lymph nodes are also noted, measuring up to 17 mm short axis. These findings are suspicious for progression of metastatic disease. Nonenlarged calcified subcarinal and bilateral hilar lymph nodes are also noted consistent with chronic granulomatous disease. Multiple cardiophrenic lymph nodes and small soft tissue nodularity is within the anterior epicardial fat are noted, new since prior exam suggesting metastatic disease, measuring up to 9 mm. Vasculature: Unremarkable. No aortic aneurysm. Bones/joints: There is a slightly displaced fracture/pathologic fracture of the left lateral 4th rib. Extensive left 5th lateral rib destruction is noted with probable pathologic fracture. Soft tissues: See Lymph nodes finding. PROCEDURE INFORMATION: Exam: CT Abdomen And Pelvis With Contrast Exam date and time: 07/02/2022 6:57 PM Age: 52 years old Clinical indication: Other: Jaundice; Abd distention; Other: Lung CA, dyspnea; Patient HX: Port placement for chemo; Lung CA; Additional info: Jaundice, abdominal distension, diffuse pain TECHNIQUE: Imaging protocol: Computed tomography of the abdomen and pelvis with contrast. Radiation optimization: All CT scans at this facility use at least one of these dose optimization techniques: automated exposure control; mA and/or kV adjustment per patient size (includes targeted exams where dose is matched to clinical indication); or iterative reconstruction. Contrast material: OMNIPAQUE 350; Contrast volume: 80 ml; Contrast route: INTRAVENOUS (IV); COMPARISON: CT chest wo con [id number] 04/19/2022 10:03 PM RADIATION DOSE METRICS: Total DLP (mGy-cm): 799.61 FINDINGS: Liver: Mild hepatomegaly with diffuse steatosis. No discrete hepatic lesions. There is moderate intrahepatic and proximal extrahepatic bile duct dilatation with abrupt distal CBD cutoff suggesting tumor obstruction of the distal CBD. Multiple hypodense/cystic lesions are also noted throughout the pancreatic body and tail with no obvious main pancreatic ductal dilatation. Gallbladder and bile ducts: Distended gallbladder with no large calcified calculi. There is probable minimal gallbladder wall thickening. No obvious signs of acute cholecystitis.. Pancreas: There is heterogeneous mass consisting of enhancing solid and heterogeneous cystic components in the pancreatic head region. The margin is ill-defined but is estimated to be approximately 4.5 by 4 cm with regional soft tissue stranding. Spleen: Normal spleen size with multiple calcified splenic granulomas. Nonspecific hypodense lesion in the spleen measuring 5 mm. Adrenal glands: Left adrenal gland is probably replaced by metastatic disease. Minimal nodular thickening of right adrenal gland which may represent small metastatic lesion. Kidneys and ureters: There is heterogeneous densities in the perinephric and pararenal spaces on the left suggesting extensive metastatic involvement. An element of hemorrhage may also be present in this setting and follow-up should be obtained. The left kidney is displaced anteriorly due to extensive perinephric and paranephric processes. Ill-defined hypodense area in the posterior left lower pole may be related to metastatic tumor involvement, measuring about 2 cm. No hydronephrosis on either side. A few hypodense right renal lesions are noted, probably simple cysts, measuring up to 12 mm however some lesions are too small to characterize and metastatic lesions cannot be excluded. Stomach and bowel: No bowel obstruction or pneumatosis. Small to moderate stool burden. Appendix: No evidence of appendicitis. Intraperitoneal space: Small amount of pelvic ascites. There is mild diffuse haziness within the anterior mesentery with some nodularity within the anterior superior omentum, suspicious for peritoneal carcinomatosis. No free air. Vasculature: There is tumor encasement resulting in near complete obstruction of the splenic/portal vein confluence. There is also mild luminal narrowing of proximal portal vein by regional malignancy. The left renal vein is not visualized and is likely encase/obstructed by the regional malignancy. Right renal vein is patent. The proximal celiac artery, SMA and renal arteries are partially encased by the regional neoplastic process but remain patent. Dilated left gonadal vein, likely sequela of left renal vein obstruction. Lymph nodes: No enlarged lymph nodes. Urinary bladder: Unremarkable as visualized. Reproductive: Unremarkable as visualized. Bones/joints: Osteopenia. No large osseous destruction in the lower spine and bony pelvis. Soft tissues: No ventral or inguinal hernia.. Other findings: Heterogeneous solid mass is noted abutting the distal pancreatic tail, measuring 2.8 by 2.2 cm, probably metastatic disease. CT/CT chest abd pel w con* IMPRESSION: 1. Comparison chest CT 04/19/2022. Significant interval progression of large thoracic masses, likely arising from the lateral left pleura with destruction of regional ribs and invasion through the chest wall. There is also in new moderate left pleural effusion with adjacent compressive atelectasis versus developing pneumonia. Follow-up should be obtained. New metastatic lesion is also noted in the left anterior inferolateral chest wall just above the diaphragm. 2. Interval progression of multi regional thoracic enlarged adenopathy. IMPRESSION: 1. Extensive soft tissue masses in multiple regions including the proximal pancreas/peripancreatic region, most likely representing metastatic disease. Primary pancreatic malignancy with regional invasion is less likely but may also be considered. Comparison prior imaging study should be obtained.. There is regional vascular encasement/occlusion as described above. There is also distal CBD obstruction with intrahepatic and proximal extrahepatic bile duct dilatation. 2. Small amount of pelvic ascites with probable peritoneal carcinomatosis. 3. 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 No hydronephrosis on either side. Bilateral renal involvement by metastatic lesions may be present. 4. Otherwise no acute bowel obstruction, free air or pneumatosis.
[2022-07-02] MEDS: lactated ringers 1,000 ML 999 ML IV (18:17)
[2022-07-02 18:31] LABS: Basophils % 0.1 %; Eosinophils # 0.1 10^3/uL (0.0-0.8); Eosinophils % 0.2 %; Hematocrit 34.5 % (37.0-47.0); Hemoglobin 12.8 g/dL (11.5-15.3); Lymphocytes # 1.2 10^3/uL (0.8-4.8); Mean Corpuscular HGB Conc 37.1 g/dL (30.0-36.0); Mean Corpuscular Hemoglobin 35.3 pg (28.0-34.0); Mean Platelet Volume 11.3 fL (7.4-10.4); Monocytes # 2.1 10^3/uL (0.2-0.9); Monocytes % 3.6 %; Neutrophils # 52.98 10^3/uL (1.8-7.7); Neutrophils % 89.8 %; Nucleated Red Blood Cells % 0 %; Platelet Count 381 10^3/cmm (130-400); Red Blood Count 3.63 10^6/uL (4.1-5.3); Red Cell Distribution Width 13.7 % (12.1-15.1)
[2022-07-02 18:55] LABS: Alanine Aminotransferase 197 U/L (0-33); Albumin Level 2.4 g/dL (3.5-5.2); Anion Gap 14.4 (5-19); Aspartate Amino Transferase 232 U/L (0-32); Blood Urea Nitrogen 27 mg/dL (6-20); Calcium 13.4 mg/dL (8.5-10.5); Carbon Dioxide 30 mmol/L (22-29); Chloride 69 mmol/L (98-107); Globulin 3.3 g/dL (1.3-4.6); Glucose 87 mg/dL (65-115); Lipase 33 U/L (13-60); Magnesium 1.6 mg/dL (1.7-2.3); Osmolality Calculated 232 mOsm/kg (285-295); Potassium 4.4 mmol/L (3.5-5.1); Total Protein 5.7 g/dL (6.6-8.7)
[2022-07-02 18:59] LABS: Alkaline Phosphatase 1138 U/L (35-105); Total Bilirubin 12.1 mg/dL (0.15-1.2)
[2022-07-02 19:00] LABS: Sodium 109 mmol/L (136-145)
[2022-07-02] MEDS: iohexol 350 mg/mL 100 mL Btl IV (19:04)
[2022-07-02 19:11] LABS: Blood Urine Trace-intact (Negative); Glucose Urine UA Negative (Normal); Ketones Urine Trace (Negative); Leukocyte Esterase Urine Trace (Negative); Nitrate Urine Negative; Protein Urine Trace (Negative); Specific Gravity, Urine 1.015 (1.005-1.030); Urine Appearance Clear (CLEAR); Urobilinogen Urine 0.2 mg/dL (Negative); pH Urine 5.5 (5-7)
[2022-07-02 19:13] LABS: Add Urine Microscopic? YES; Bilirubin Urine 3+ (Negative); Urine Color Dark Yellow (Yellow)
[2022-07-02] MEDS: piperacillin-tazobactam 4.5 GM in sodium chloride 0.9% (plus) 50 ML IV (19:16)
[2022-07-02 19:20] LABS: Bacteria Urine 2+ /hpf; RBC Urine 0-4 /hpf (0-2); Squamous Epithelial Cell Urine 0-4 /hpf (0-5); WBC Urine 0-4 /hpf (0-5)
[2022-07-02 19:21] LABS: Add Urine Culture? Yes
[2022-07-02] MEDS: morphine 4 mg/mL SDV 1 mL IVP (19:44)
[2022-07-02 19:48] LABS: Lactic Sepsis W/Reflex 1.7 mmol/L (0.5-2.2)
[2022-07-02] MEDS: vancomycin 1,000 MG in sodium chloride 0.9% 250 ML 250 MG IV (19:48)
[2022-07-02] MEDS: sodium chloride 0.9% 1,000 ML 999 ML IV (22:58)
--- NOTE | 2022-07-02 23:18 | PC.NURSE ---
Report to Jenniffer LUNA
[2022-07-03 00:37] VITALS: BP 103/65; PULSE 110; RESP 18; O2SAT 92
--- NOTE | 2022-07-03 00:37 | PC.NURSE ---
Called report to Diane Lara
== END 2022-07-03 01:09 ==
PROVIDERS: Emergency Provider Emergency Medicine; PCP Nurse Practitioner Family
DX: A41.9 Sepsis, unspecified organism (principal); K83.1 Obstruction of bile duct; J90 Pleural effusion, not elsewhere classified; R91.8 Other nonspecific abnormal finding of lung field; E87.1 Hypo-osmolality and hyponatremia; C34.91 Malignant neoplasm of unspecified part of right bronchus or lung
CPT/HCPCS: 36415; 71045; 71260; 74177; 80053; 81001; 83605; 83690; 83735; 85025; 87040; 87077; 87086; 87186; 87205; 96365; 96367; 96375; 99285; J2270; J2543; J3370; J7030; J7050; Q9967